=== PATIENT | female | born 1945 | race Caucasian/White ===

== ENCOUNTER 2019-03-23 14:50 | Outpatient (CLI) | payer MEDICARE, MEDICAID, SELFPAY ==
--- NOTE | 2019-03-23 15:00 | XR_ITS ---
WS: [id number] LATERAL LUMBAR SPINE: 3 view. Lateral radiographs are performed in upright neutral, flexion and extension to the patient's toleranc e. 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 Disc spaces and vertebral body heights are normal. With flexion and extensio n there is no instability. Mild osteopenia. Mild atherosclerosis aorta. XR/XR lumbar spine f/e only [id number] IMPRESSION: No lumbar spine instability.
--- NOTE | 2019-03-23 15:00 | CT_ITS ---
WS: [id number] CT LUMBAR SPINE, noncontrast. 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 Sagittal and coronal reformats are submitte d and reviewed. All CT scans at [facility] use at least one of these dose optimization te chniques: automated exposure control; mA and/or kV adjustment per patient size (includes targeted exa ms where dose is matched to clinical indication); or iterative reconstruction. IV contrast: None DLP: 2000.4 mGycm COMPARISON: MRI 11/26/2018 Normal lumbar alignment with no loss of disc space height or vertebral body height. L1-2: Normal. L2-3: Normal. L3-4: Very mild annular disc bulging. No stenosis or herniation. L4-5: Mild annular disc bulging with slight flattening upon the ventral thecal sac. No significant st enosis. L5-S1: Mild central disc protrusion is broad-based. No significant stenosis. Mild atherosclerosis throughout the abdominal aorta. No aneurysm. Large rounded complex mass from the upper pole of the LEFT kidney needs to be further evaluated. Mass measures 6.3 x 6.2 x 5.5 cm. The adjacent visualized LEFT kidney is markedly atrophic. The RIGHT kid ankur is normal size. Mild narrowing of the SI joints. CT/CT lumbar spine wo con* [id number] IMPRESSION: 1. No significant central or foraminal stenosis. The disc heights and vertebra l bodies and foramen are well-preserved for the patient's chronological age. 2. Large complex soft tissue mass associated with the upper pole of the LEFT k idney measures 6.3 x 6.2 x 5.5 cm. Could be a hemorrhagic cyst or complex cyst. Neoplasm with hemorrhage should be considered also. Neoplasm needs to be exclu ded. The LEFT kidney, although incompletely visualized, is markedly atrophic. R ecommend additional imaging to evaluate the LEFT kidney. The most helpful study would be CT with and without IV contrast. 3. Mild atherosclerosis aorta with no aneurysm.
== END 2019-03-23 14:51 | disposition home or self-care (01) ==
PROVIDERS: Family Provider Family Medicine; PCP Family Medicine; Referring Provider Family Medicine; Visit Provider Licensed Practical Nurse
DX: M51.17 Intervertebral disc disorders with radiculopathy, lumbosacral region (principal); N28.89 Other specified disorders of kidney and ureter; I70.0 Atherosclerosis of aorta
CPT/HCPCS: 72120; 72131

== ENCOUNTER → 2019-04-02 13:16 | Outpatient (BNVA) | payer MEDICARE, MEDICAID, SELFPAY | PROVIDERS: Family Provider Family Medicine; PCP Family Medicine; Referring Provider Licensed Practical Nurse; Visit Provider Psychiatry & Neurology Neurology | DX: G62.9 Polyneuropathy, unspecified (principal); F17.210 Nicotine dependence, cigarettes, uncomplicated | CPT/HCPCS: 95886; 95909 ==

== ENCOUNTER → 2019-04-07 12:58 | Outpatient (BNVA) | payer MEDICARE, MEDICAID, SELFPAY | PROVIDERS: Family Provider Family Medicine; PCP Family Medicine; Visit Provider Nurse Practitioner Psychiatric/Mental Health | DX: F33.1 Major depressive disorder, recurrent, moderate (principal); F41.9 Anxiety disorder, unspecified; G47.21 Circadian rhythm sleep disorder, delayed sleep phase type; F17.210 Nicotine dependence, cigarettes, uncomplicated | CPT/HCPCS: 99214 ==

== ENCOUNTER 2019-04-13 08:10 | Outpatient (CLI) | payer MEDICARE, MEDICAID, SELFPAY ==
[2019-04-13] MEDS: iohexol 300 mg/mL 50 mL Btl PO (09:27)
--- NOTE | 2019-04-13 09:30 | CT_ITS ---
WS: [id number] CT ABDOMEN AND PELVIS WITH AND WITHOUT CONTRAST HISTORY: left kidney mass TECHNIQUE: Unenhanced 5 mm axial imaging first performed through the abdomen. Post contrast imaging t hrough the abdomen and pelvis. Oral contrast has been provided. Sagittal and coronal reformats are s ubmitted. All CT scans at [facility] use at least one of these dose optimization techniqu es: automated exposure control; mA and/or kV adjustment per patient size (includes targeted exams whe re dose is matched to clinical indication); or iterative reconstruction. CONTRAST: Omnipaque 300; 95 mL IV. DLP: 2485.59 mGycm COMPARISON: Lumbar spine CT 03/23/2019. Lung bases are clear. Increased fat consistent with lipomatous changes along the intra-atrial septum. There is also increased pericardial fat. Small hiatal hernia. There is a large round soft tissue mass extending exophytic from the upper pole of the LEFT kidney me asuring 6.6 x 5.8 x 5.9 cm. Well-rounded mass of variable density on the noncontrast examination. Sterling nsfield units are elevated. The entire mass does not significantly enhance on the postcontrast studi es. On the postcontrast study there is enhancement greater than 30 Hounsfield units involving the mos t inferior aspect of the mass. The remaining LEFT kidney demonstrates marked atrophy and diffuse reynaldo ical thinning although there is still some enhancement and excretion from the kidney. RIGHT kidney: Normal size RIGHT kidney with no mass or obstruction. No calcifications. Liver, gallbladder, adrenal glands, pancreas and spleen are negative for any acute process. No adenop athy or free fluid. Mild atherosclerosis aorta with no aneurysm. Only single renal arteries are ident ified from the aorta. Visualized GI tract is negative for acute process. No significant diverticular disease. The appendix is been removed. Status post hysterectomy. Anterior abdominal wall is intact. No osteoblastic or osteolytic bone disease. CT/CT abdomen pelvis wo/w [id number] IMPRESSION: 1. Large solid mass from the upper pole of the LEFT kidney measures 6.6 x 5.8 x 5.9 cm. There is very minimal enhancement and only a small portion of the mas s. Due to the large size and no adjacent adenopathy this may be a low-grade ne oplasm or benign mass. Recommend consultation with urology. 2. Severe atrophy of the LEFT kidney although there is still excretion. 3. No adenopathy. 4. Normal RIGHT kidney.
[2019-04-13 09:55] LABS: Blood Urea Nitrogen 14 mg/dL (8-23)
[2019-04-13] MEDS: iohexol 300 mg/mL 100 mL Btl IV (10:09)
== END 2019-04-13 08:11 | disposition home or self-care (01) ==
PROVIDERS: Radiology Diagnostic Radiology; Family Provider Family Medicine; PCP Family Medicine; Visit Provider Licensed Practical Nurse
DX: N28.89 Other specified disorders of kidney and ureter (principal); N26.1 Atrophy of kidney (terminal)
CPT/HCPCS: 74178; 82565; 84520; Q9967

== ENCOUNTER → 2019-04-14 15:57 | Outpatient (BNVA) | payer MEDICARE, MEDICAID, SELFPAY | PROVIDERS: Family Provider Family Medicine; PCP Family Medicine; Visit Provider Family Medicine | DX: E78.2 Mixed hyperlipidemia (principal); N28.89 Other specified disorders of kidney and ureter | CPT/HCPCS: 36415; 80053 ==

== ENCOUNTER → 2019-05-17 09:31 | Outpatient (BNVA) | payer MEDICARE, MEDICAID, SELFPAY | PROVIDERS: Family Provider Family Medicine; PCP Family Medicine; Visit Provider Specialist | DX: R56.9 Unspecified convulsions (principal); G25.81 Restless legs syndrome; F17.210 Nicotine dependence, cigarettes, uncomplicated | CPT/HCPCS: 99213 ==

== ENCOUNTER 2019-05-24 09:37 | Outpatient (CLI) | payer MEDICARE, MEDICAID, SELFPAY ==
--- NOTE | 2019-05-24 09:47 | MM_ITS ---
WS: [id number] BILATERAL DIGITAL SCREENING MAMMOGRAPHY WITH CAD CLINICAL INFORMATION: SCREENING HISTORY: Screening mammogram. No current complaints. COMPARISON: March 04, 2018 TECHNIQUE: Bilateral CC and MLO views. FINDINGS: Scattered fibroglandular densities bilaterally. No suspicious focal mass, asymmetry, calcifications, or architectural distortion. No evidence of malignancy. MM/[place] [id number] IMPRESSION: BI-RADS: 1-Negative FOLLOW UP: 1 Year Follow-up Recommend return to annual screening mammography.
== END 2019-05-24 09:38 | disposition home or self-care (01) ==
PROVIDERS: Family Provider Family Medicine; PCP Family Medicine; Visit Provider Family Medicine
DX: Z12.31 Encounter for screening mammogram for malignant neoplasm of breast (principal)
CPT/HCPCS: 77067

== ENCOUNTER → 2019-06-28 08:10 | Outpatient (BNVA) | payer MEDICARE, MEDICAID, SELFPAY | PROVIDERS: Family Provider Family Medicine; PCP Family Medicine; Visit Provider Nurse Practitioner Psychiatric/Mental Health | DX: F33.1 Major depressive disorder, recurrent, moderate (principal); F41.9 Anxiety disorder, unspecified; G47.21 Circadian rhythm sleep disorder, delayed sleep phase type | CPT/HCPCS: 99214 ==

== ENCOUNTER 2019-07-03 20:00 | Observation (INO) | payer MEDICARE, MEDICAID, SELFPAY ==
[2019-07-03] VITALS (18 sets, daily range): BP systolic 116–149; BP diastolic 74–89; PULSE 70–77; RESP 13–27; TEMP 36.6; O2SAT 92–100; BMI 33.5
--- NOTE | 2019-07-03 20:07 | ED_ITS ---
HPI - Fall General: Chief Complaint: Altered Mental Status Stated Complaint: FALL/ HIT HEAD Time Seen by Provider: 07/03/19 20:07 History of Present Illness: HPI Narrative: Pt was standing in [place] and her arms started shaking and she felt lightheaded and she fell and hit her head, was unconscious for at least 20 min, when ems got to her she could sy her head hurt and she was in and out of consciousness, pt states she has had head bleed in the past from innjury. Answers most questions but is hard to arouse. Moves all 4 etmariann CARBAJAL complaint: fall Onset (ago): minute(s) Fall from: standing Fall witnessed: yes, by family Place fall occurred: home Loss of consciousness: None Length of LOC: minutes(s) Prolonged down time: yes and minute(s) Symptoms prior to fall: lightheadedness and dizziness Associated symptoms-after fall: Reports headache(s); Denies abdominal pain or chest pain Review of Systems General: Reports: 10 or more systems reviewed and unremarkable except in HPI and below Const: Denies: fever or chills ENMT: Denies: throat pain Card: Denies: chest pain or swelling of feet/ankles Resp: Denies: shortness of breath or productive cough GI: Denies: abdominal pain, nausea, vomiting, diarrhea, constipation or blood in stool : Denies: difficulty urinating Musc: Denies: back pain or extremity swelling Skin/Breast: Denies: rash Neuro: Reports: headache, lack of coordination, frequent falls, slurred speech and other (lethargic); Denies: numbness in extremities or weakness in extremities PFSH ED PFSH: Social History Smoking and tobacco status: current every day smoker cigarettes [ Other cigarette details: 6 daily ] Alcohol intake: never Lives independently: Yes Household members: spouse Housing: House Marital status: service: No Current occupational status: retired and disabled History of recent travel: No Female Reproductive History: Para: 4 Spontaneous abortions: Yes Physical Exam Const: COMMON NORMALS: oriented x3; negative for alert (somnolent, difficult to arouse, follows most commands) EXAM LIMITATIONS: altered mental status GENERAL APPEARANCE: well developed and lethargic ORIENTATION/CONSCIOUSNESS: Yes oriented to person, Yes oriented to place, Yes oriented to time and Yes lethargic HENMT: COMMON NORMALS: normocephalic HEAD & SCALP: normal to inspection and normocephalic MOUTH: oral and palatal mucosa normal and lip normal THROAT: posterior oropharynx normal and tonsils normal Neck/C-Spine: COMMON NORMALS: no meningeal signs GENERAL: Yes normal visual inspection and Yes trachea midline CERVICAL SPINE: Yes collar present Chest: COMMONS NORMALS: inspection of chest normal Resp: COMMON NORMALS: normal respiratory effort and clear to auscultation bilaterally EFFORT & INSPECTION: Yes able to speak in complete sentences and No respiratory distress AUSCULTATION: clear to auscultation bilaterally, no rales, no rhonchi and no wheezes Cardio: COMMON NORMALS: regular rate, regular rhythm, S1 normal heart sound, S2 normal heart sound and no murmurs RATE: regular rate RHYTHM: regular rhythm HEART SOUNDS: S1 normal and S2 normal PERIPHERAL PULSES: radial pulses present and dorsalis pedis pulses present GI: COMMON NORMALS: normal to inspection, nondistended, normoactive bowel sounds, soft to palpation and non-tender INSPECTION: Yes normal to inspection AUSCULTATION: Yes normoactive bowel sounds PALPATION: Yes soft, No tender, No guarding and No rigid RECTAL EXAM: deferred : COMMON NORMALS: Yes no CVA tenderness BLADDER/KIDNEY EXAM: Yes no CVA tenderness Back/Pelvis: COMMON NORMALS: no CVA tenderness Extremity: COMMON NORMALS: normal to inspection, full ROM, normal capillary refill, no calf tenderness and no pedal edema Neuro: COMMON NORMALS: oriented x3 SENSORIUM/ORIENTATION: No alert (somnolent, difficult to arouse, follows most commands), Yes oriented to person, Yes oriented to place, Yes oriented to time and Yes lethargic MENINGEAL SIGNS: Yes no meningeal signs Skin: COMMON NORMALS: no rashes or lesions noted GENERAL SKIN EXAM: no rashes or lesions noted Course Vital Signs: Vital signs: Vital Signs Temperature 97.9 F 07/03/19 20:00 Pulse Rate 70 07/03/19 20:49 Respiratory Rate 27 H 07/03/19 20:49 Blood Pressure 134/84 07/03/19 20:49 Pulse Oximetry 99 07/03/19 20:49 MDM - Fall MDM Narrative: Medical decision making narrative: Pt has fallen and is confused, She has mild basilar infilatrates on cxr so I have staretd her on levaquin, she had shaking of her arms before she beame unresponsive and she is on seizure meds so she may have had a seizure and was postictal. Seh is not hypoxic, Ct head and neck are unremarkable. Dr Crump states she will put pt in obs for likely prolonged post ictal state and pneumonia, requests we order a covid 19 test Lab Data: Attestation: I reviewed the patient's lab results. Labs: Lab Results 07/03/19 07/03/19 07/03/19 Range/Units 20:25 20:31 20:31 WBC 10.8 H (4.0-10.0) 10^3/ uL RBC 3.64 L (4.1-5.3) 10^6/u L Hgb 12.5 (11.5-15.3) g/dL Hct 36.7 L (37.0-47.0) % MCV 100.8 H (81-99) fL MCH 34.3 H (28.0-34.0) pg MCHC 34.1 (30.0-36.0) g/dL RDW 13.9 (12.1-15.1) % Plt Count 416 H (130-400) 10^3/c mm MPV 8.6 (7.4-10.4) fL Neut % (Auto) 57.9 % Lymph % (Auto) 27.5 % Angelina % (Auto) 9.9 % Eos % (Auto) 3.4 % Baso % (Auto) 0.7 % Neut # (Auto) 6.2 (1.8-7.7) 10^3/u L Lymph # (Auto) 3.0 (0.8-4.8) 10^3/u L Angelina # (Auto) 1.1 H (0.2-0.9) 10^3/u L Eos # (Auto) 0.4 (0.0-0.8) 10^3/u L Baso # (Auto) 0.1 (0.0-0.1) 10^3/u L Nucleated RBC % (a uto) 0 % Nucleated RBCs # 0.0 /100WBC Specimen Type Arterial Sample Site Radial, right ABG pH 7.40 (7.35-7.45) ABG pCO2 47.9 H (35-45) mmHg ABG pO2 86.7 (80.0-100.0) mmH g ABG HCO3 29.3 H (22-26) mmol/L ABG O2 Saturation 97.4 ABG Base Excess 3.7 H (-2.0-2.0) mmol/ L Manuel Test Pos A-a O2 Gradient 3.6 L (5-10) mmHg Hematocrit 38.1 (37-47) % Hgb O2 Saturation 95.3 (95-100) % Carboxyhemoglobin 1.4 (0.4-20.1) %THgb Methemoglobin 0.8 (0.4-1.5) % Total Hemoglobin 12.4 (12-16) g/dL Sodium 139.0 138 (131-143) mmol/L Potassium 3.3 L 3.4 L (3.5-5.0) mmol/L Glucose 108.0 119 H (70-115) mg/dL Ionized Calcium 1.2 (1.1-1.4) mmol/L O2 Delivery Device Nc O2 Liters/Min 2.0 % Assembly Room Supervisor ID ellpe Chloride 96 L (98-107) mmol/L Carbon Dioxide 27 (22-29) mmol/L Anion Gap 18.4 (5-19) BUN 12 (8-23) mg/dL Creatinine 1.1 H (0.5-0.9) mg/dL Calculated Osmolal ity 283 L (285-295) mOsm/k g Lactate (0.5-2.2) mmol/L Calcium 9.4 (8.5-10.5) mg/dL Total Bilirubin 0.3 (0.15-1.2) mg/dL AST 26 (0-32) U/L ALT < 5 (0-33) U/L Alkaline Phosphata se 122 H (35-105) IU/L Troponin T Baselin e (0-10) ng/mL Troponin T 120 Min teller (0-10) ng/mL Delta Troponin T (0-10) ABS# Total Protein 6.5 L (6.6-8.7) g/dL Albumin 3.9 (3.5-5.2) g/dL Globulin 2.6 (1.3-4.6) g/dL Urine Color (Yellow) Urine Appearance (CLEAR) Urine pH (5-7) Ur Specific Gravit y (1.005-1.030) Urine Protein (Negative) Urine Glucose (UA) (Normal) Urine Ketones (Negative) Urine Blood (Negative) Urine Nitrate (Negative) Urine Bilirubin (NEGATIVE) Urine Urobilinogen (Negative) mg/dL Ur Leukocyte Bev ase (Negative) Urine RBC (0-2) /hpf Urine WBC (0-5) /hpf Ur Squamous Epith Cells (0-5) Amorphous Sediment Urine Bacteria (NONE) Hyaline Casts Urine Mucus Phenytoin 0.8 L (10-20) ug/mL Influenza Type A A g (Negative) Influenza Type B A g (Negative) 07/03/19 07/03/19 07/03/19 Range/Units 20:31 20:31 21:20 WBC (4.0-10.0) 10^3/ uL RBC (4.1-5.3) 10^6/u L Hgb (11.5-15.3) g/dL Hct (37.0-47.0) % MCV (81-99) fL MCH (28.0-34.0) pg MCHC (30.0-36.0) g/dL RDW (12.1-15.1) % Plt Count (130-400) 10^3/c mm MPV (7.4-10.4) fL Neut % (Auto) % Lymph % (Auto) % Angelina % (Auto) % Eos % (Auto) % Baso % (Auto) % Neut # (Auto) (1.8-7.7) 10^3/u L Lymph # (Auto) (0.8-4.8) 10^3/u L Angelina # (Auto) (0.2-0.9) 10^3/u L Eos # (Auto) (0.0-0.8) 10^3/u L Baso # (Auto) (0.0-0.1) 10^3/u L Nucleated RBC % (a uto) % Nucleated RBCs # /100WBC Specimen Type Sample Site ABG pH (7.35-7.45) ABG pCO2 (35-45) mmHg ABG pO2 (80.0-100.0) mmH g ABG HCO3 (22-26) mmol/L ABG O2 Saturation ABG Base Excess (-2.0-2.0) mmol/ L Manuel Test A-a O2 Gradient (5-10) mmHg Hematocrit (37-47) % Hgb O2 Saturation (95-100) % Carboxyhemoglobin (0.4-20.1) %THgb Methemoglobin (0.4-1.5) % Total Hemoglobin (12-16) g/dL Sodium (131-143) mmol/L Potassium (3.5-5.0) mmol/L Glucose (70-115) mg/dL Ionized Calcium (1.1-1.4) mmol/L O2 Delivery Device O2 Liters/Min % Assembly Room Supervisor ID Chloride (98-107) mmol/L Carbon Dioxide (22-29) mmol/L Anion Gap (5-19) BUN (8-23) mg/dL Creatinine (0.5-0.9) mg/dL Calculated Osmolal ity (285-295) mOsm/k g Lactate 2.7 H (0.5-2.2) mmol/L Calcium (8.5-10.5) mg/dL Total Bilirubin (0.15-1.2) mg/dL AST (0-32) U/L ALT (0-33) U/L Alkaline Phosphata se (35-105) IU/L Troponin T Baselin e 13 H (0-10) ng/mL Troponin T 120 Min teller (0-10) ng/mL Delta Troponin T (0-10) ABS# Total Protein (6.6-8.7) g/dL Albumin (3.5-5.2) g/dL Globulin (1.3-4.6) g/dL Urine Color Yellow (Yellow) Urine Appearance Clear (CLEAR) Urine pH 5 (5-7) Ur Specific Gravit y 1.020 (1.005-1.030) Urine Protein Trace (Negative) Urine Glucose (UA) Norm (Normal) Urine Ketones Negative (Negative) Urine Blood Neg (Negative) Urine Nitrate Negative (Negative) Urine Bilirubin 1+ H (NEGATIVE) Urine Urobilinogen Norm (Negative) mg/dL Ur Leukocyte Bev ase Negative (Negative) Urine RBC 0-4 H (0-2) /hpf Urine WBC 0-4 H (0-5) /hpf Ur Squamous Epith Cells 0-4 H (0-5) Amorphous Sediment Trace Urine Bacteria Trace (NONE) Hyaline Casts 15-25 H Urine Mucus Trace Phenytoin (10-20) ug/mL Influenza Type A A g (Negative) Influenza Type B A g (Negative) 07/03/19 07/03/19 Range/Units 21:20 22:30 WBC (4.0-10.0) 10^3/ uL RBC (4.1-5.3) 10^6/u L Hgb (11.5-15.3) g/dL Hct (37.0-47.0) % MCV (81-99) fL MCH (28.0-34.0) pg MCHC (30.0-36.0) g/dL RDW (12.1-15.1) % Plt Count (130-400) 10^3/c mm MPV (7.4-10.4) fL Neut % (Auto) % Lymph % (Auto) % Angelina % (Auto) % Eos % (Auto) % Baso % (Auto) % Neut # (Auto) (1.8-7.7) 10^3/u L Lymph # (Auto) (0.8-4.8) 10^3/u L Angelina # (Auto) (0.2-0.9) 10^3/u L Eos # (Auto) (0.0-0.8) 10^3/u L Baso # (Auto) (0.0-0.1) 10^3/u L Nucleated RBC % (a uto) % Nucleated RBCs # /100WBC Specimen Type Sample Site ABG pH (7.35-7.45) ABG pCO2 (35-45) mmHg ABG pO2 (80.0-100.0) mmH g ABG HCO3 (22-26) mmol/L ABG O2 Saturation ABG Base Excess (-2.0-2.0) mmol/ L Manuel Test A-a O2 Gradient (5-10) mmHg Hematocrit (37-47) % Hgb O2 Saturation (95-100) % Carboxyhemoglobin (0.4-20.1) %THgb Methemoglobin (0.4-1.5) % Total Hemoglobin (12-16) g/dL Sodium (131-143) mmol/L Potassium (3.5-5.0) mmol/L Glucose (70-115) mg/dL Ionized Calcium (1.1-1.4) mmol/L O2 Delivery Device O2 Liters/Min % Assembly Room Supervisor ID Chloride (98-107) mmol/L Carbon Dioxide (22-29) mmol/L Anion Gap (5-19) BUN (8-23) mg/dL Creatinine (0.5-0.9) mg/dL Calculated Osmolal ity (285-295) mOsm/k g Lactate (0.5-2.2) mmol/L Calcium (8.5-10.5) mg/dL Total Bilirubin (0.15-1.2) mg/dL AST (0-32) U/L ALT (0-33) U/L Alkaline Phosphata se (35-105) IU/L Troponin T Baselin e (0-10) ng/mL Troponin T 120 Min teller 14.94 H (0-10) ng/mL Delta Troponin T 1.94 (0-10) ABS# Total Protein (6.6-8.7) g/dL Albumin (3.5-5.2) g/dL Globulin (1.3-4.6) g/dL Urine Color (Yellow) Urine Appearance (CLEAR) Urine pH (5-7) Ur Specific Gravit y (1.005-1.030) Urine Protein (Negative) Urine Glucose (UA) (Normal) Urine Ketones (Negative) Urine Blood (Negative) Urine Nitrate (Negative) Urine Bilirubin (NEGATIVE) Urine Urobilinogen (Negative) mg/dL Ur Leukocyte Bev ase (Negative) Urine RBC (0-2) /hpf Urine WBC (0-5) /hpf Ur Squamous Epith Cells (0-5) Amorphous Sediment Urine Bacteria (NONE) Hyaline Casts Urine Mucus Phenytoin (10-20) ug/mL Influenza Type A A g Negative (Negative) Influenza Type B A g Negative (Negative) Imaging Data^: CT Head: Radiologist's impression: [address] [place] [address] CT Scan Report Signed Patient: Roxana Carrington #: [id number] : 8Acct#:[id number] Age/Sex: 74 / FADM Date: 07/03/19 Loc: ERRoom/Bed: Attending Dr: Ordering Provider/Ordering MD: Kim Weiss DO Date of Service: 07/03/19 Procedure(s): CT head wo con* [id number] Accession Number(s): [id number] Report Number: [id number] PROCEDURE INFORMATION: Exam: CT Head Without Contrast Exam date and time: 07/03/2019 8:11 PM Age: 74 years old Clinical indication: Syncope and collapse; Patient HX: Syncope episode hitting head was unresponsive; Additional info: Trauma TECHNIQUE: Imaging protocol: Computed tomography of the head without contrast. Radiation optimization: All CT scans at this facility use at least one of these dose optimization techniques: automated exposure control; mA and/or kV adjustment per patient size (includes targeted exams where dose is matched to clinical indication); or iterative reconstruction. COMPARISON: CT head wo con* [id number] 12/29/2018 2:00 PM FINDINGS: The ventricles, sulci and basilar cisterns are normal for the patient's stated age. There are mild areas of decreased attenuation in the periventricular white matter which is nonspecific but likely relates to small vessel ischemic change. There is no evidence for acute infarct. There is no evidence for mass. There is no hemorrhage. There are no extra-axial fluid collections. There is no midline shift. The skull is intact. The visualized paranasal sinuses are well aerated. There is atherosclerotic change of the cavernous carotid arteries. CT/CT head wo con* [id number] IMPRESSION: No evidence for acute intracranial injury. Radiation Dose CTDIVOL = (mGy): DLP = 741.35 (mGy-cm) Dictated By:Navarro Steele MD Signed By:Navarro Steele MDSigned Date/Time:07/03/192029 DD/ [address]: Radiologist's impression: CT Scan Report Signed Patient: Roxana Carrington #: [id number] : 8Acct#:[id number] Age/Sex: 74 / FADM Date: 07/03/19 Loc: ERRoom/Bed: Attending Dr: Ordering Provider/Ordering MD: Kim Weiss DO Date of Service: 07/03/19 Procedure(s): CT cervical spin wo con* [id number] Accession Number(s): [id number] Report Number: [id number] PROCEDURE INFORMATION: Exam: CT Cervical Spine Without Contrast Exam date and time: 07/03/2019 8:11 PM Age: 74 years old Clinical indication: Injury or trauma; Fall; Initial encounter; Blunt trauma; Patient HX: Syncope episode hitting head was unresponsive TECHNIQUE: Imaging protocol: Computed tomography images of the cervical spine without contrast. Radiation optimization: All CT scans at this facility use at least one of these dose optimization techniques: automated exposure control; mA and/or kV adjustment per patient size (includes targeted exams where dose is matched to clinical indication); or iterative reconstruction. COMPARISON: CT Cervical Spine wo* [id number] 12/29/2018 2:03 PM FINDINGS: There is some straightening of the normal cervical lordosis. This may be due to muscle spasm or patient positioning. There is no evidence of fracture or subluxation. The vertebral bodies are of normal height. There is disc space narrowing at C5-C6 with endplate spurring. The remaining disc spaces are well maintained The prevertebral soft tissues and the predental space are unremarkable. There are mild degenerative changes of the C1-C2 articulation. There are degenerative changes of the facet joints and uncovertebral joints. There is no significant central stenosis. There is no evidence for epidural hematoma. The lung apices are clear. There is a 3 cm cystic mass in the right lobe of the thyroid gland. There is a 17 mm cystic mass within the left lobe of gland. Correlation with thyroid ultrasound and clinical exam on a nonemergent basis could be performed. CT/CT cervical spin wo con* [id number] IMPRESSION: There is some straightening of the normal cervical lordosis. This may be due to muscle spasm or patient positioning. There is no evidence of fracture or subluxation. Radiation Dose CTDIVOL = (mGy): DLP = 490.45 (mGy-cm) Dictated By:Navarro Steele MD Signed By:Navarro Steeleigned Date/Time:07/03/192031 EKG Data^: EKG 1: Attestation: I personally reviewed and interpreted this EKG as follows: EKG interpretation time: 20:36 Interpretation: nsr rate 70, normal st segments Discharge Plan Discharge Patient Disposition: Placed in Observation Clinical Impression: Altered mental status, Post-ictal state, Epilepsy, Concussion, Pneumonia Condition: Stable Prescriptions: No Action bupropion HCl 200 mg tablet sustained-release 12 hr 200 mg PO BID Qty: 180 RF: 2 aripiprazole 5 mg tablet 5 mg PO .QHS Qty: 90 RF: 2 mirtazapine [Remeron] 15 mg tablet 15 mg PO .QHS Qty: 90 RF: 2 Chantix 1 mg tablet 1 mg PO BID Qty: 56 RF: 2 lorazepam 1 mg tablet 1 mg PO .COMPLEX Qty: 90 RF: 3 diphenhydramine HCl [Benadryl Allergy] 25 mg tablet 100 mg PO .QHS PRNRF: 0 phenytoin sodium extended 100 mg capsule 100 mg PO DAILY Qty: 30 RF: 0 hydrocodone-acetaminophen 5-325 mg tablet 1 tab PO ONCE PRNRF: 0 Trelegy Ellipta 100-62.5-25 mcg blister with device 1 inh INHALATION QDAY RF: 0 furosemide 40 mg tablet 40 mg PO QAM RF: 0 potassium chloride 10 mEq capsule, extended release 10 meq PO QDAY RF: 0 ipratropium-albuterol 0.5 mg-3 mg(2.5 mg base)/3 mL solution for nebulization 3 ml INHALATION Q4H PRNRF: 0 montelukast [Singulair] 10 mg tablet 10 mg PO QDAY RF: 0 atorvastatin [Lipitor] 20 mg tablet 20 mg PO QDAY Qty: 90 RF: 0 nitroglycerin [Nitrostat] 0.4 mg tablet, sublingual 0.4 mg SUBLINGUAL Q5M PRN (Reason: chest pain) 30 Days Qty: 25 RF: 6 allopurinol 100 mg tablet 100 mg PO QDAY Qty: 90 RF: 0 naproxen 500 mg tablet 500 mg PO BID Qty: 180 RF: 0 albuterol sulfate [Ventolin HFA] 90 mcg/actuation HFA aerosol inhaler 2 puff INHALATION Q4H PRN (Reason: shortness of breath or wheezing) Qty: 18 RF: 2 meclizine 25 mg tablet 50 mg PO BID Qty: 360 RF: 0 omeprazole 40 mg capsule,delayed release(DR/EC) 40 mg PO BID Qty: 60 RF: 1 All Day Allergy (cetirizine) 10 mg capsule 10 mg PO DAILY Qty: 30 RF: 0 pramipexole 1 mg tablet 1 mg PO QDAY Qty: 30 RF: 5 lamotrigine 150 mg tablet 150 mg PO BID Qty: 180 RF: 3 Referrals: Brissa Katz DO [Primary Care Provider] - Louisa Jaramillo DO [Family Provider] - Coding Level of Care Code ED First Aid Director for Chg Fwd Exam Comprehensive
--- NOTE | 2019-07-03 20:10 | ECG_ITS ---
Measurements Intervals [place] Rate: 83 P: 68 NV: 161 QRS: 55 QRSD: 97 T: 66 QT: 401 QTc: 471 SINUS RHYTHM INCOMPLETE RIGHT BUNDLE BRANCH BLOCK [90+ ms QRS DURATION, TERMINAL R IN V1/V2, 40+ ms S IN I/aVL/V4/V5/V6] Compared to ECG 02/16/2017 02:40:57 Incomplete right bundle-branch block now present Electronically Signed On 07-04-2019 20:21:44 CDT by Gauri Gardiner M.D. [id number]
--- NOTE | 2019-07-03 20:10 | XRR_ITS ---
PROCEDURE INFORMATION: Exam: XR Chest, 1 View Exam date and time: 07/03/2019 8:29 PM Age: 74 years old Clinical indication: Injury or trauma; Fall; Initial encounter; Concussion /head injury; Additional info: Pneumonia TECHNIQUE: Imaging protocol: XR of the chest Views: 1 view. COMPARISON: CR Chest 1 [place] [id number] 02/16/2017 3:34 AM FINDINGS: There is cardiomegaly which is stable. There are mild infiltrates within the lung bases. There is no pleural effusion or pneumothorax. Pulmonary vascularity is normal. No rib fractures are seen. XR/XR chest 1V portable [id number] IMPRESSION: 1. Cardiomegaly, stable. 2. Mild basilar infiltrates.
[2019-07-03 20:38] LABS: ABG PCO2 47.9 mmHg (35-45); Alveolar-Arterial Oxygen Gradi 3.6 mmHg (5-10); Arterial Blood Gas Hematocrit 38.1 % (37-47); Base Excess ABG 3.7 mmol/L (-2.0-2.0); Blood Gas Allen Test Pos; Blood Gas Sample Site Radial, right; Blood Gas Sample Type Arterial; Carboxyhemoglobin 1.4 %THgb (0.4-20.1); HCO3 ABG 29.3 mmol/L (22-26); HGB O2 Sat 95.3 % (95-100); Ionized Calcium Level - ABG 1.2 mmol/L (1.1-1.4); Methemoglobin 0.8 % (0.4-1.5); Oxygen Device NC; Oxygen Saturation ABG 97.4; PO2 ABG 86.7 mmHg (80.0-100.0); Potassium Level - ABG 3.3 mmol/L (3.5-5.0); Total Hemoglobin 12.4 g/dL (12-16)
--- NOTE | 2019-07-03 20:41 | PC.NURSE ---
Pt. lethargic. Arouses to voice. Oriented x 3.
[2019-07-03 20:46] LABS: Basophils # 0.1 10^3/uL (0.0-0.1); Basophils % 0.7 %; Eosinophils # 0.4 10^3/uL (0.0-0.8); Eosinophils % 3.4 %; Hematocrit 36.7 % (37.0-47.0); Hemoglobin 12.5 g/dL (11.5-15.3); Lymphocytes % 27.5 %; Mean Corpuscular HGB Conc 34.1 g/dL (30.0-36.0); Mean Corpuscular Hemoglobin 34.3 pg (28.0-34.0); Mean Corpuscular Volume 100.8 fL (81-99); Mean Platelet Volume 8.6 fL (7.4-10.4); Monocytes # 1.1 10^3/uL (0.2-0.9); Monocytes % 9.9 %; Neutrophils # 6.2 10^3/uL (1.8-7.7); Neutrophils % 57.9 %; Nucleated Red Blood Cells % 0 %; Platelet Count 416 10^3/cmm (130-400); Red Blood Count 3.64 10^6/uL (4.1-5.3); Red Cell Distribution Width 13.9 % (12.1-15.1); White Blood Count 10.8 10^3/uL (4.0-10.0)
[2019-07-03 21:01] LABS: Alanine Aminotransferase < 5 U/L (0-33); Albumin Level 3.9 g/dL (3.5-5.2); Alkaline Phosphatase 122 IU/L (35-105); Anion Gap 18.4 (5-19); Aspartate Amino Transferase 26 U/L (0-32); Blood Urea Nitrogen 12 mg/dL (8-23); Calcium 9.4 mg/dL (8.5-10.5); Carbon Dioxide 27 mmol/L (22-29); Chloride 96 mmol/L (98-107); Globulin 2.6 g/dL (1.3-4.6); Glucose 119 mg/dL (65-115); Osmolality Calculated 283 mOsm/kg (285-295); Phenytoin Dilantin 0.8 ug/mL (10-20); Potassium 3.4 mmol/L (3.5-5.1); Sodium 138 mmol/L (136-145); Total Bilirubin 0.3 mg/dL (0.15-1.2); Total Protein 6.5 g/dL (6.6-8.7)
[2019-07-03 21:02] LABS: Lactate (Lactic Acid level) 2.7 mmol/L (0.5-2.2)
[2019-07-03 21:03] LABS: Troponin(5th) Baseline 13 ng/mL (0-10)
--- NOTE | 2019-07-03 22:10 | ECG_ITS ---
Measurements Intervals [place] Rate: 70 P: 63 MI: 177 QRS: 42 QRSD: 86 T: 71 QT: 421 QTc: 456 SINUS RHYTHM LOW QRS VOLTAGE IN PRECORDIAL LEADS [QRS DEFLECTION < 1.0 mV IN CHEST LEADS] POSSIBLE RIGHT VENTRICULAR CONDUCTION DELAY [RSR (QR) IN V1/V2] Compared to ECG 02/16/2017 02:40:57 Low QRS voltage now present Electronically Signed On 07-04-2019 20:25:42 CDT by Gauri Gardiner M.D. [id number]
[2019-07-03 22:27] LABS: Influenza A by IFA Negative (Negative); Influenza B by IFA Negative (Negative)
[2019-07-03 22:28] LABS: Add Urine Microscopic? YES; Bilirubin Urine 1+ (NEGATIVE); Blood Urine Neg (Negative); Glucose Urine UA Norm (Normal); Ketones Urine Negative (Negative); Leukocyte Esterase Urine Negative (Negative); Nitrate Urine Negative (Negative); Protein Urine Trace (Negative); Urine Appearance Clear (CLEAR); Urine Color Yellow (Yellow); Urobilinogen Urine Norm (Negative); pH Urine 5 (5-7)
[2019-07-03 22:29] LABS: Bacteria Urine TRACE; Mucus Urine TRACE; RBC Urine 0-4 /hpf (0-2); Squamous Epithelial Cell Urine 0-4 (0-5); WBC Urine 0-4 /hpf (0-5)
[2019-07-03 22:30] LABS: Add Urine Culture? No; Amorphous Sediment Urine TRACE; Hyaline Casts Urine 15-25
[2019-07-03 22:57] LABS: Troponin 5 2HR 14.94 ng/mL (0-10); Troponin 5 2HR Delta 1.94 ABS# (0-10)
[2019-07-03] MEDS: cefTRIAXone 1,000 MG in sodium chloride 0.9% (plus) 50 ML 100 MG IV (23:10)
--- NOTE | 2019-07-03 23:59 | PM.HP ---
Providers/Chief Complaint Admitting Physician: Suzette Crump MD Primary Care Provider: Brissa Katz DO Chief Complaint: FALL/ HIT HEAD History of Present Illness Roxana Carrington is a 74 year old female who presented to the emergency room after what was felt to be a seizure and a fall. According to available information, she was standing in her kitchen and her arm started shaking and she ended up falling and hitting her head. She was not responsive after this. It is not clear if she had any loss of bowel or bladder function. No reported vomiting. EMS reported that patient could answer questions but was lethargic when they arrived. Family indicated this might be a little bit different than her usual seizures. She does have a history of epilepsy. Patient last saw Dr. Welch in April of this year. It looks like dose of Lamictal had been increased and Dilantin was being decreased due to chronic liver enzyme elevation. Dr. Welch's notes indicate that patient has several seizures a day at baseline. These vary in type from what sounds like absence seizure's generalized tonic-clonic. She has been on multiple medications without much improvement. It does not sound like a prolonged postictal status the usual for her. She is on multiple medications that can potentially contribute to alteration in mental status. That said, beyond the decreased dose of Dilantin I do not see other recent medication changes. Patient did have a left nephrectomy in May for a renal mass. I do not know the details from that. It was done in [place]. Work-up in the emergency room was unrevealing however she remained lethargic. She did hit her head. [place] to either be having a prolonged postictal state or potentially concussive symptoms. She is being admitted for further evaluation and monitoring. History is limited presently due to current mental status Review of Systems General: Reports: ROS unobtainable due to medical condition and ROS unobtainable due to mental status Medications/Allergies Home Medications Medication Instructions Recorded Confirmed Last Taken Type fluticasone fur. 100 mcg-umeclid 1 inh INHALATION QDAY 03/29/19 07/04/19 Unknown History 62.5 mcg-vilant 25 mcg inhalat.powder furosemide 40 mg tablet 40 mg PO QAM 03/29/19 07/04/19 Unknown History hydrocodone 5 mg-acetaminophen 325 1 tab PO ONCE PRN tab 03/29/19 07/04/19 Unknown History mg tablet ipratropium 0.5 mg-albuterol 3 mg 3 ml INHALATION Q4H PRN 03/29/19 07/04/19 Unknown History (2.5 mg base)/3 mL nebulization soln montelukast 10 mg tablet 10 mg PO QDAY 03/29/19 07/04/19 Unknown History potassium chloride 10 mEq 10 meq PO QDAY 03/29/19 07/04/19 Unknown History capsule,extended release diphenhydramine HCl 25 mg tablet 100 mg PO .QHS PRN tab 04/07/19 07/04/19 Unknown History atorvastatin 20 mg tablet 20 mg PO QDAY #90 tab 04/16/19 07/04/19 Unknown Rx nitroglycerin 0.4 mg sublingual 0.4 mg SUBLINGUAL Q5M PRN 30 Days 05/04/19 07/04/19 Unknown Rx tablet #25 tab phenytoin sodium extended 100 mg 100 mg PO DAILY #30 cap 05/17/19 07/04/19 Unknown Rx capsule albuterol sulfate 90 mcg/actuation 2 puff INHALATION Q4H PRN #18 gm 05/20/19 07/04/19 Unknown Rx aerosol inhaler allopurinol 100 mg tablet 100 mg PO QDAY #90 tab 05/20/19 07/04/19 Unknown Rx meclizine 25 mg tablet 50 mg PO BID #360 tab 05/20/19 07/04/19 Unknown Rx naproxen 500 mg tablet 500 mg PO BID #180 tab 05/20/19 07/04/19 Unknown Rx cetirizine 10 mg capsule 10 mg PO DAILY #30 cap 05/25/19 07/04/19 Unknown Rx aripiprazole 5 mg tablet 5 mg PO .QHS #90 tab 06/28/19 07/04/19 Unknown Rx bupropion HCl 200 mg tablet,12 hr 200 mg PO BID #180 tab 06/28/19 07/04/19 Unknown Rx sustained-release lorazepam 1 mg tablet 1 mg PO .COMPLEX #90 tab 06/28/19 07/04/19 Unknown Rx mirtazapine 15 mg tablet 15 mg PO .QHS #90 tab 06/28/19 07/04/19 Unknown Rx pramipexole 1 mg tablet 1 mg PO QDAY #30 tab 06/28/19 07/04/19 Unknown Rx varenicline 1 mg tablet 1 mg PO BID #56 tab 06/28/19 07/04/19 Unknown Rx lamotrigine 150 mg tablet 150 mg PO BID #180 tab 06/29/19 07/04/19 Unknown Rx Allergies Allergy/AdvReac Type Severity Reaction Status Date / Time ciprofloxacin Allergy Mild unknown Verified 05/17/19 10:49 niacin Allergy Mild unknown Verified 05/17/19 10:49 tetracycline Allergy Mild itching, Verified 05/17/19 10:49 rash gabapentin Allergy unknown Verified 05/17/19 10:49 Penicillins Allergy Unknown Verified 05/17/19 10:49 propoxyphene [From [place]von] Allergy Unknown Verified 05/17/19 10:49 Sulfa (Sulfonamide Allergy Unknown Verified 05/17/19 10:49 Antibiotics) Additional Medication Information Have not been able to be fully reviewed today. Looking at the records however they have been reviewed and confirmed within the last week. And Dr. Welch's recent clinic note however it states that she was to taper down on her Dilantin and then stop it and I suspect that she has. PFSH Acute PFSH: Medical History Anxiety and depression Blindness CAD (coronary artery disease) CHF (congestive heart failure) Chronic gout Circadian rhythm sleep disorder, delayed sleep phase type COPD (chronic obstructive pulmonary disease) Enrolled in chronic care management Essential hypertension Gait instability Generalized epilepsy, intractable GERD (gastroesophageal reflux disease) Hyperlipidemia, mixed Intervertebral disc disorder with radiculopathy of lumbosacral region Left kidney mass Meniere's disease, bilateral PRESTON treated with BiPAP Postictal headache PVD (peripheral vascular disease) Recurrent moderate major depressive disorder with anxiety Restless leg Surgical History H/O: hysterectomy History of appendectomy History of brain surgery (~1998) Meniere's disease History of carpal tunnel repair left History of cholecystectomy History of foot surgery bilateral Family History Mother CAD (coronary artery disease) Myocardial infarction Stroke Diabetes Father CAD (coronary artery disease) Myocardial infarction Stroke Social History Smoking and tobacco status: current every day smoker cigarettes [ Other cigarette details: 6 daily ] Alcohol intake: never Lives independently: Yes Household members: spouse Housing: House Marital status: service: No Current occupational status: retired and disabled History of recent travel: No Female Reproductive History: Para: 4 Spontaneous abortions: Yes Vitals/I&O/Wt Last Vital Signs Temp 97.9 F 07/03/19 20:00 Pulse 75 07/03/19 22:00 Resp 13 07/03/19 22:00 BP 116/74 07/03/19 22:00 Pulse Ox 98 07/03/19 22:00 Weight last 48 hrs Weight 88.451 kg Physical Exam Const: GENERAL APPEARANCE: lethargic HENMT: COMMON NORMALS: moist oral mucous membranes MOUTH: tongue not abnormal Eye: COMMON NORMALS: PERRL Neck/C-Spine: COMMON NORMALS: supple Resp: COMMON NORMALS: normal respiratory effort, no use of accessory muscles and clear to auscultation bilaterally EFFORT & INSPECTION: Yes other (Not snoring) Cardio: COMMON NORMALS: peripheral pulses 2+ throughout RATE: regular rate RHYTHM: regular rhythm HEART SOUNDS: murmur GI: COMMON NORMALS: soft to palpation and non-tender AUSCULTATION: Yes normoactive bowel sounds OTHER: Healing surgical scars Extremity: COMMON NORMALS: normal capillary refill and no clubbing, cyanosis or edema Neuro: SENSORIUM/ORIENTATION: Yes somnolent OTHER: No tremors Skin: COMMON NORMALS: no rashes or lesions noted Data : 07/05/19 05:45 07/05/19 05:45 Micro: Microbiology 07/03/19 20:40 Blood Culture - Preliminary Blood SPECIMEN COLLECTED 07/03/19 20:31 Blood Culture - Preliminary Blood SPECIMEN COLLECTED A&P Assessment and plan (1) Fall at home: [place] secondary to seizure activity. Hit her head by report and had loss of consciousness. Challenging to know if that was postictal or related to the fall and closed head injury. CT of the head and neck did not show any acute abnormalities. No acute injuries otherwise. Status: Acute Qualifiers: Encounter type: initial encounter Qualified Code(s): W19.XXXA - Unspecified fall, initial encounter; Y92.009 - Unspecified place in unspecified non-institutional (private) residence as the place of occurrence of the external cause (2) Altered mental status: [place] to be post ictal in nature. Cannot rule out a concurrent concussion. She is starting to wake up and will answer some questions and say things appropriately but does not maintain awakened state for long periods of time. Status: Acute Qualifiers: Altered mental status type: somnolence Qualified Code(s): R40.0 - Somnolence (3) Epilepsy: Longstanding. Has several seizures daily. Has had Dilantin trended downward due to liver enzyme elevation. Liver enzymes today are improved she remains on Lamictal at an increased dose for the last month or so. Status: Acute Qualifiers: Epilepsy type: other generalized Intractability: not intractable Status epilepticus: without status epilepticus Qualified Code(s): G40.409 - Other generalized epilepsy and epileptic syndromes, not intractable, without status epilepticus (4) Pneumonia: Noted on chest x-ray in the emergency room, bilateral. No reported vomiting at the scene. I do not have any history to support pneumonia. May be some atelectasis. Has already received antibiotics Status: Acute Qualifiers: Laterality: bilateral Lung location: lower lobe of lung Pneumonia type: due to unspecified organism Qualified Code(s): J18.9 - Pneumonia, unspecified organism (5) COPD (chronic obstructive pulmonary disease): Does not appear clinically acute Status: Chronic Qualifiers: COPD type: emphysema Emphysema type: panlobular Qualified Code(s): J43.1 - Panlobular emphysema (6) PRESTON treated with BiPAP: Mild hypercapnia noted on ABG Status: Chronic Additional A&P Information Observation admission for now COVID testing was sent Continue Rocephin and azithromycin for now When more alert need to get a bit more history Repeat chest x-ray tomorrow N.p.o. until more awake Hold home medicines until more awake exception of Lamictal May have to consider additional antiepileptic but given long history of trials of other medications may benefit from neurology input in this. Could consider resumption of Dilantin with load dose if needed particularly with normalization of liver enzymes Home CPAP Low risk for VTE presently Supportive care otherwise Full code Attestations Medical Necessity Statement*: Currently anticipated stay less than 2 midnights in a patient with longstanding history of seizures. She is currently lethargic suggestive of a more prolonged postictal state plus or minus concussion. Coding Level of Care Code Acute Hospice Clinical Manager for Chg Fwd Exam Comprehensive Diagnoses Fall at home W19.XXXA; Y92.009 Encounter type: initial encounter Altered mental status R40.0 Altered mental status type: somnolence Epilepsy G40.409 Epilepsy type: other generalized Intractability: not intractable Status epilepticus: without status epilepticus Pneumonia J18.9 Laterality: bilateral Lung location: lower lobe of lung Pneumonia type: due to unspecified organism COPD (chronic obstructive pulmonary disease) J43.1 COPD type: emphysema Emphysema type: panlobular PRESTON treated with BiPAP G47.33
[2019-07-04] VITALS (68 sets, daily range): BP systolic 89–151; BP diastolic 45–78; PULSE 66–88; RESP 12–27; TEMP 35.9–36.9; O2SAT 97–100
[2019-07-04] MEDS: azithromycin 500 MG in sodium chloride 0.9% 250 ML 250 MG IV (00:04)
[2019-07-04] MEDS: lactated ringers 1,000 ML 100 ML IV (00:08)
--- NOTE | 2019-07-04 02:10 | ECG_ITS ---
Measurements Intervals [place] Rate: 74 P: 67 [place]: 167 QRS: 57 QRSD: 88 T: 65 QT: 416 QTc: 462 SINUS RHYTHM POSSIBLE RIGHT VENTRICULAR CONDUCTION DELAY [RSR (QR) IN V1/V2] NONSPECIFIC T-WAVE ABNORMALITY Compared to ECG 02/16/2017 02:40:57 T-wave abnormality now present Electronically Signed On 07-04-2019 20:26:06 CDT by Gauri Gardiner M.D. [id number]
[2019-07-04] MEDS: D5-NS 0.45% + KCL 20 mEq 20 MEQ/1,000 ML BAG 75 MEQ IV (03:43)
[2019-07-04 03:44] LABS: Basophils # 0.1 10^3/uL (0.0-0.1); Basophils % 0.4 %; Eosinophils # 0.3 10^3/uL (0.0-0.8); Eosinophils % 2.4 %; Hematocrit 32.5 % (37.0-47.0); Hemoglobin 11.2 g/dL (11.5-15.3); Lymphocytes # 2.5 10^3/uL (0.8-4.8); Lymphocytes % 21.8 %; Mean Corpuscular HGB Conc 34.5 g/dL (30.0-36.0); Mean Corpuscular Hemoglobin 34.1 pg (28.0-34.0); Mean Corpuscular Volume 99.1 fL (81-99); Mean Platelet Volume 8.8 fL (7.4-10.4); Monocytes # 0.9 10^3/uL (0.2-0.9); Monocytes % 8.1 %; Neutrophils # 7.8 10^3/uL (1.8-7.7); Nucleated Red Blood Cells % 0 %; Platelet Count 376 10^3/cmm (130-400); Red Blood Count 3.28 10^6/uL (4.1-5.3); Red Cell Distribution Width 13.7 % (12.1-15.1); White Blood Count 11.7 10^3/uL (4.0-10.0)
[2019-07-04 03:55] LABS: Alanine Aminotransferase 10 U/L (0-33); Albumin Level 3.7 g/dL (3.5-5.2); Alkaline Phosphatase 100 IU/L (35-105); Anion Gap 16.7 (5-19); Aspartate Amino Transferase 16 U/L (0-32); Blood Urea Nitrogen 12 mg/dL (8-23); Calcium 8.9 mg/dL (8.5-10.5); Carbon Dioxide 28 mmol/L (22-29); Chloride 98 mmol/L (98-107); Globulin 2.4 g/dL (1.3-4.6); Glucose 107 mg/dL (65-115); Osmolality Calculated 285 mOsm/kg (285-295); Potassium 3.7 mmol/L (3.5-5.1); Sodium 139 mmol/L (136-145); Total Bilirubin 0.2 mg/dL (0.15-1.2); Total Protein 6.1 g/dL (6.6-8.7)
[2019-07-04 03:58] LABS: Troponin 5 6HR 15.29 ng/mL (0-10); Troponin 5 6HR Delta 2.29 ng/L (0-12)
[2019-07-04 04:05] LABS: Magnesium 1.7 mg/dL (1.7-2.3)
[2019-07-04] MEDS: lamoTRIgine 100 mg Tablet 150 MG PO ×2 (08:24→17:59)
--- NOTE | 2019-07-04 09:48 | PC.NURSE ---
obtained permission to talk to Natividad Carrington pt [id number].
--- NOTE | 2019-07-04 12:24 | PC.NURSE ---
pt reports that her hearing aids are not in her room. Staff searched room and they were not located. ER, CT and laundry called to have them check. Young, from CT states that he took the left one out and put it in a container with 2 hair tyes and put on the bed with the pt. ER says they do not have them. Angelique, clinical resource manager notified.
--- NOTE | 2019-07-04 14:00 | P.PN_ITS ---
Subjective Subjective: Interval history: Patient states that she has 2 types of seizures, big seizures and small seizures, big seizures usually occur on a weekly basis, when she typically loses consciousness, she has generalized shaking, she usually can feel them coming on usually will go to sleep before it comes on. She states that her small seizures occur a few times a day, and usually there are staring spells, lasting a few seconds to a minute. Patient states that she has had these seizures for a long period of time, has failed multiple courses of antiseizure medications, currently is on Lamictal, and her Dilantin was slowly weaned down as she had liver function abnormalities related to the Dilantin Patient states that last thing she remembers was she was standing up in her kitchen, after that she cannot remember anything, apparently patient fell hit her head, and generalized tonic-clonic seizure Currently denies headaches, blurry vision, neck ache, back pain, any joint pain Denies fevers, chills, recent travel, any known exposure to COVID-19, Vitals/I&O/Wt Last Vital Signs Temp 97.9 F 07/03/19 20:00 Pulse 79 07/04/19 12:15 Resp 16 07/04/19 12:15 BP 121/66 07/04/19 12:15 Pulse Ox 99 07/04/19 12:15 07/03/19 07/04/19 07/04/19 22:59 06:59 14:59 Intake Total 700 / 700 380 / 380 Balance 700 / 700 380 / 380 Weight last 48 hrs Weight 88.451 kg Physical Exam Const: COMMON NORMALS: no apparent distress and oriented x3 HENMT: COMMON NORMALS: normocephalic HEAD & SCALP: normocephalic Neck/C-Spine: COMMON NORMALS: no JVD Resp: COMMON NORMALS: normal respiratory effort, no retractions, no use of accessory muscles and clear to auscultation bilaterally AUSCULTATION: clear to auscultation bilaterally Cardio: COMMON NORMALS: no JVD, regular rate, regular rhythm, S1 normal heart sound and S2 normal heart sound RATE: regular rate RHYTHM: regular rhythm HEART SOUNDS: S1 normal and S2 normal GI: COMMON NORMALS: normal to inspection, nondistended, normoactive bowel sounds, soft to palpation, non-tender, no hepatosplenomegaly, no masses and no bruits PALPATION: Yes soft and Yes no hepatosplenomegaly Extremity: COMMON NORMALS: normal capillary refill, no clubbing, cyanosis or edema, no calf tenderness and no pedal edema Neuro: COMMON NORMALS: oriented x3 Psych: COMMON NORMALS: mental status grossly normal Data : 07/04/19 03:20 07/04/19 03:20 Micro: Microbiology 07/03/19 20:40 Blood Culture - Preliminary Blood SPECIMEN COLLECTED 07/03/19 20:31 Blood Culture - Preliminary Blood SPECIMEN COLLECTED A&P Assessment and plan (1) Fall at home: [place] secondary to seizure activity. Hit her head by report and had loss of consciousness. Challenging to know if that was postictal or related to the fall and closed head injury. CT of the head and neck did not show any acute abnormalities. No acute injuries otherwise. Status: Acute Qualifiers: Encounter type: initial encounter Qualified Code(s): W19.XXXA - Unspecified fall, initial encounter; Y92.009 - Unspecified place in unspecified non-institutional (private) residence as the place of occurrence of the external cause (2) Altered mental status: [place] to be post ictal in nature. Currently alert oriented x3, in the ICU, answering all questions appropriately We will monitor for concussion symptoms s Status: Acute Qualifiers: Altered mental status type: somnolence Qualified Code(s): R40.0 - Somnolence (3) Epilepsy: Longstanding. Has several seizures daily. Has had Dilantin trended downward due to liver enzyme elevation. Liver enzymes today are improved she remains on Lamictal at an increased dose for the last month or so. Continue Lamictal 150 twice daily We will continue her home Dilantin 100 twice daily Will reach out to neurology tomorrow morning Status: Acute Qualifiers: Epilepsy type: other generalized Intractability: not intractable Status epilepticus: without status epilepticus Qualified Code(s): G40.409 - Other generalized epilepsy and epileptic syndromes, not intractable, without status epilepticus (4) Pneumonia: Noted on chest x-ray in the emergency room, bilateral. No reported vomiting at the scene. I do not have any history to support pneumonia. May be some atelectasis. Possibly aspiration related to seizure and fall, continue antibiotics for now Status: Acute Qualifiers: Laterality: bilateral Lung location: lower lobe of lung Pneumonia type: due to unspecified organism Qualified Code(s): J18.9 - Pneumonia, unsp ecified organism (5) COPD (chronic obstructive pulmonary disease): Does not appear clinically acute Status: Chronic Qualifiers: COPD type: emphysema Emphysema type: panlobular Qualified Code(s): J43.1 - Panlobular emphysema (6) PRESTON treated with BiPAP: Mild hypercapnia noted on ABG Status: Chronic Additional A&P Information Inpatient admission for now COVID testing was sent Continue Rocephin and azithromycin for now Cardiac diet Home CPAP Low risk for VTE presently Supportive care otherwise Full code Attestations Medical Necessity Statement*: She requires continued hospitalization due to epilepsy, pneumonia Coding Level of Care Code Acute Monument Letterer for Chg Fwd Diagnoses Fall at home W19.XXXA; Y92.009 Encounter type: initial encounter Altered mental status R40.0 Altered mental status type: somnolence Epilepsy G40.409 Epilepsy type: other generalized Intractability: not intractable Status epilepticus: without status epilepticus Pneumonia J18.9 Laterality: bilateral Lung location: lower lobe of lung Pneumonia type: due to unspecified organism COPD (chronic obstructive pulmonary disease) J43.1 COPD type: emphysema Emphysema type: panlobular PRESTON treated with BiPAP G47.33
[2019-07-04 16:15] LABS: Coronavirus Lab Test PTC Negative
[2019-07-04] MEDS: allopurinol 100 mg Tablet PO (17:58)
[2019-07-04] MEDS: montelukast sodium 10 mg Tablet PO (17:58)
[2019-07-04] MEDS: atorvastatin 40 mg Tablet 20 MG PO (17:58)
[2019-07-04] MEDS: buPROPion SR (12 HR) 100 mg Tablet 200 MG PO (17:59)
[2019-07-04] MEDS: phenytoin ER 100 mg Capsule PO (17:59)
[2019-07-04] MEDS: mirtazapine 15 mg Tablet PO (21:45)
[2019-07-04] MEDS: ARIPiprazole 10 mg Tablet 5 MG PO (21:45)
[2019-07-05] VITALS: BP 133/78; PULSE 77; RESP 17; TEMP 36.6; O2SAT 100
[2019-07-05] MEDS: cefTRIAXone 1,000 MG in sodium chloride 0.9% (plus) 50 ML 100 MG IV (03:19)
[2019-07-05 04:00] VITALS: BP 150/72; PULSE 78; RESP 18; TEMP 36.6; O2SAT 96
--- NOTE | 2019-07-05 06:00 | XR_ITS ---
WS: [id number] CHEST 2 VIEWS HISTORY: bilateral infiltrates COMPARISON: 07/03/2019 Lungs: Improved aeration bilaterally. No pneumonia. Pulmonary vasculature is normal. Cardiac size: Mildly enlarged cardiac silhouette. Mediastinum/Aorta: Partially calcified aorta. Bones: Normal. XR/XR chest 2V* [id number] IMPRESSION: Improved aeration bilaterally. No pneumonia.
[2019-07-05] MEDS: FUROsemide 40 mg Tablet PO (06:09)
[2019-07-05 06:13] LABS: Basophils # 0.1 10^3/uL (0.0-0.1); Basophils % 0.6 %; Eosinophils # 0.4 10^3/uL (0.0-0.8); Hematocrit 33.3 % (37.0-47.0); Hemoglobin 11.2 g/dL (11.5-15.3); Lymphocytes # 2.2 10^3/uL (0.8-4.8); Lymphocytes % 24.7 %; Mean Corpuscular HGB Conc 33.6 g/dL (30.0-36.0); Mean Corpuscular Hemoglobin 34.5 pg (28.0-34.0); Mean Corpuscular Volume 102.5 fL (81-99); Mean Platelet Volume 8.9 fL (7.4-10.4); Monocytes # 0.7 10^3/uL (0.2-0.9); Monocytes % 8.3 %; Neutrophils # 5.4 10^3/uL (1.8-7.7); Neutrophils % 62.2 %; Nucleated Red Blood Cells % 0 %; Platelet Count 364 10^3/cmm (130-400); Red Blood Count 3.25 10^6/uL (4.1-5.3); Red Cell Distribution Width 14.1 % (12.1-15.1); White Blood Count 8.7 10^3/uL (4.0-10.0)
[2019-07-05 06:27] LABS: Alanine Aminotransferase 15 U/L (0-33); Albumin Level 3.7 g/dL (3.5-5.2); Alkaline Phosphatase 101 IU/L (35-105); Aspartate Amino Transferase 16 U/L (0-32); Blood Urea Nitrogen 9 mg/dL (8-23); Calcium 9.9 mg/dL (8.5-10.5); Carbon Dioxide 28 mmol/L (22-29); Chloride 102 mmol/L (98-107); Globulin 2.5 g/dL (1.3-4.6); Glucose 112 mg/dL (65-115); Magnesium 1.9 mg/dL (1.7-2.3); Osmolality Calculated 289 mOsm/kg (285-295); Phosphorus 3.1 mg/dL (2.5-4.5); Sodium 141 mmol/L (136-145); Total Bilirubin 0.2 mg/dL (0.15-1.2); Total Protein 6.2 g/dL (6.6-8.7)
[2019-07-05 07:31] VITALS: BP 152/79; PULSE 80; RESP 20; TEMP 36.6; O2SAT 99
[2019-07-05 08:27] VITALS: PULSE 93; O2SAT 98
[2019-07-05] MEDS: azithromycin 250 mg Tablet PO (08:40)
[2019-07-05] MEDS: allopurinol 100 mg Tablet PO (08:40)
[2019-07-05] MEDS: buPROPion SR (12 HR) 100 mg Tablet 200 MG PO (08:41)
[2019-07-05] MEDS: phenytoin ER 100 mg Capsule PO (08:41)
[2019-07-05] MEDS: lamoTRIgine 100 mg Tablet 150 MG PO (08:42)
[2019-07-05] MEDS: pramipexole 0.25 mg Tablet 1 MG PO (08:42)
[2019-07-05] MEDS: montelukast sodium 10 mg Tablet PO (08:42)
[2019-07-05] MEDS: atorvastatin 40 mg Tablet 20 MG PO (08:42)
--- NOTE | 2019-07-05 09:24 | P.DS_ITS ---
Discharge Providers Date of Admission: 07/03/19 23:22 Date of Discharge: July 05, 2019 Attending Provider at Admission: Suzette Crump MD Attending Provider at Discharge: Pato Lux MD Primary Care Provider: Sweetie Santiago MD Diagnoses at Discharge Discharge Diagnosis (1) Fall at home: Status: Acute Qualifiers: Encounter type: initial encounter Qualified Code(s): W19.XXXA - Unspecified fall, initial encounter; Y92.009 - Unspecified place in unspecified non-institutional (private) residence as the place of occurrence of the external cause (2) Altered mental status: Status: Acute Qualifiers: Altered mental status type: somnolence Qualified Code(s): R40.0 - Somnolence (3) Epilepsy: Status: Acute Qualifiers: Epilepsy type: other generalized Intractability: not intractable Status epilepticus: without status epilepticus Qualified Code(s): G40.409 - Other generalized epilepsy and epileptic syndromes, not intractable, without status epilepticus (4) Pneumonia: Status: Acute Qualifiers: Laterality: bilateral Lung location: lower lobe of lung Pneumonia type: due to unspecified organism Qualified Code(s): J18.9 - Pneumonia, unspecified organism (5) COPD (chronic obstructive pulmonary disease): Status: Chronic Qualifiers: COPD type: emphysema Emphysema type: panlobular Qualified Code(s): J43.1 - Panlobular emphysema (6) PRESTON treated with BiPAP: Status: Chronic Reason for Visit Reason for Visit: Reason For Visit: FALL/ HIT HEAD Hospital Course Discharge Summary: This is a 74-year-old female with a past medical history of anxiety and depression, CAD, CHF, COPD, GERD, hyperlipidemia, history of left kidney mass, PRESTON on BiPAP, who presents to the emergency room due to evaluation of seizure and a fall. Patient had a seizure at home, generalized tonic-clonic seizure, with loss of consciousness, and head trauma when she fell, she has a history of epilepsy, she was on Lamictal 150 mg twice daily, her Dilantin dose was being weaned off due to concerns for transaminitis and renal failure. Patient was initially monitored in the intensive care unit, was postictal, but her demeanor improved, she is alert oriented x3, answering all questions appropriately, was moved to general medical floors, she did well. After discussion with neurology, Dr. Welch, her Dilantin was restarted 100 mg twice daily, with close follow-up with Dr. Welch in her office. For her fall, secondary to seizure activity, she hit her head and had loss of consciousness, CT of the head and neck had no acute findings, patient denied any headaches, blurry vision, neck pain, joint pains. Patient was advised to monitor for concussion-like symptoms and if so please follow-up with primary care. In addition on admission patient was found to have bilateral lower lobe infiltrates, concerning for pneumonia, she was started on broad-spectrum antibiotics, remained afebrile, cultures remained unremarkable, she was discharged on azithromycin. Physical Exam Const: COMMON NORMALS: no apparent distress and oriented x3 HENMT: COMMON NORMALS: normocephalic HEAD & SCALP: normocephalic Neck/C-Spine: COMMON NORMALS: no JVD Resp: COMMON NORMALS: normal respiratory effort, no retractions, no use of accessory muscles and clear to auscultation bilaterally AUSCULTATION: clear to auscultation bilaterally Cardio: COMMON NORMALS: no JVD, regular rate, regular rhythm, S1 normal heart sound and S2 normal heart sound RATE: regular rate RHYTHM: regular rhythm HEART SOUNDS: S1 normal and S2 normal GI: COMMON NORMALS: normal to inspection, nondistended, normoactive bowel sounds, soft to palpation, non-tender, no hepatosplenomegaly, no masses and no bruits PALPATION: Yes soft and Yes no hepatosplenomegaly Extremity: COMMON NORMALS: normal capillary refill, no clubbing, cyanosis or edema, no calf tenderness and no pedal edema Neuro: COMMON NORMALS: oriented x3 Psych: COMMON NORMALS: mental status grossly normal Discharge Data Data Completed and Pending: Completed Studies During Hospitalization Category Date Time Status CT cervical spin wo con* [id number] Stat Cat Scan 07/03/19 20:[address] head wo con* 7 0450 Stat Cat Scan 07/03/19 20:09 Completed XR chest 1V benito ble [id number] Stat Exams 07/03/19 20:10 Completed XR chest 2V* [id number] 6 Routine Exams 07/05/19 06:00 Completed Pending at discharge Category Date Time Status Blood Culture Sta t Lab 07/03/19 20:40 Results Complete Blood Co unt w/Auto AM LABS Lab 07/06/19 04:00 Ordered Complete Blood Co unt w/Auto AM LABS Lab 07/07/19 04:00 Ordered Comprehensive Met abolic Panel AM LA BS Lab 07/06/19 04:00 Ordered Comprehensive Met abolic Panel AM LA BS Lab 07/07/19 04:00 Ordered Magnesium AM LABS Lab 07/06/19 04:00 Ordered Magnesium AM LABS Lab 07/07/19 04:00 Ordered Phosphorus AM LAB S Lab 07/06/19 04:00 Ordered Phosphorus AM LAB S Lab 07/07/19 04:00 Ordered Labs from last 24 hours 07/05/19 07/05/19 07/03/19 05:45 05:45 23:30 WBC 8.7 RBC 3.25 L Hgb 11.2 L Hct 33.3 L MCV 102.5 H MCH 34.5 H MCHC 33.6 RDW 14.1 Plt Count 364 MPV 8.9 Neut % (Auto) 62.2 Lymph % (Auto) 24.7 [place] % (Auto) 8.3 Eos % (Auto) 4.0 Baso % (Auto) 0.6 Neut # (Auto) 5.4 Lymph # (Auto) 2.2 [place] # (Auto) 0.7 Eos # (Auto) 0.4 Baso # (Auto) 0.1 Nucleated RBC % (a uto) 0 Nucleated RBCs # 0.0 Sodium 141 Potassium 4.0 Chloride 102 Carbon Dioxide 28 Anion Gap 15.0 BUN 9 Creatinine 0.8 Glucose 112 Calculated Osmolal ity 289 Calcium 9.9 Phosphorus 3.1 Magnesium 1.9 Total Bilirubin 0.2 AST 16 ALT 15 Alkaline Phosphata se 101 Total Protein 6.2 L Albumin 3.7 Globulin 2.5 Nasal/Oral COVID-1 9 PCR Negative Vitals: Last Vital Signs Temp 97.9 F 07/05/19 07:31 Pulse 93 07/05/19 08:27 Resp 20 H 07/05/19 07:31 BP 152/79 07/05/19 07:31 Pulse Ox 98 07/05/19 08:27 Discharge Plan Discharge Patient Disposition: Home, Self-Care Condition: Stable Prescriptions: New phenytoin sodium extended 100 mg Capsule 100 mg PO BID 30 Days Qty: 60 RF: 0 azithromycin 250 mg tablet 250 mg PO DAILY 2 Days Qty: 2 RF: 0 Continued bupropion HCl 200 mg tablet sustained-release 12 hr 200 mg PO BID Qty: 180 RF: 2 aripiprazole 5 mg tablet 5 mg PO .QHS Qty: 90 RF: 2 mirtazapine [Remeron] 15 mg tablet 15 mg PO .QHS Qty: 90 RF: 2 Chantix 1 mg tablet 1 mg PO BID Qty: 56 RF: 2 lorazepam 1 mg tablet 1 mg PO .COMPLEX Qty: 90 RF: 3 diphenhydramine HCl [Benadryl Allergy] 25 mg tablet 100 mg PO .QHS PRN (Reason: Allergic Reaction) RF: 0 hydrocodone-acetaminophen 5-325 mg tablet 1 tab PO ONCE PRN (Reason: Pain) RF: 0 Trelegy Ellipta 100-62.5-25 mcg blister with device 1 inh INHALATION QDAY RF: 0 furosemide 40 mg tablet 40 mg PO QAM RF: 0 potassium chloride 10 mEq capsule, extended release 10 meq PO QDAY RF: 0 ipratropium-albuterol 0.5 mg-3 mg(2.5 mg base)/3 mL solution for nebulization 3 ml INHALATION Q4H PRN (Reason: Shortness Of Breath Or Wheezing) RF: 0 montelukast [Singulair] 10 mg tablet 10 mg PO QDAY RF: 0 atorvastatin [Lipitor] 20 mg tablet 20 mg PO QDAY Qty: 90 RF: 0 nitroglycerin [Nitrostat] 0.4 mg tablet, sublingual 0.4 mg SUBLINGUAL Q5M PRN (Reason: chest pain) 30 Days Qty: 25 RF: 6 allopurinol 100 mg tablet 100 mg PO QDAY Qty: 90 RF: 0 naproxen 500 mg tablet 500 mg PO BID Qty: 180 RF: 0 albuterol sulfate [Ventolin HFA] 90 mcg/actuation HFA aerosol inhaler 2 puff INHALATION Q4H PRN (Reason: shortness of breath or wheezing) Qty: 18 RF: 2 All Day Allergy (cetirizine) 10 mg capsule 10 mg PO DAILY Qty: 30 RF: 0 pramipexole 1 mg tablet 1 mg PO QDAY Qty: 30 RF: 5 lamotrigine 150 mg tablet 150 mg PO BID Qty: 180 RF: 3 Discontinued phenytoin sodium extended 100 mg capsule 100 mg PO DAILY Qty: 30 RF: 0 meclizine 25 mg tablet 50 mg PO BID Qty: 360 RF: 0 Discharge Orders: Discharge Order (Routine); Ordered 07/05/19 Ordered By: Pato Lux Referrals: Rachel Welch MD [Physician] - 2 weeks Brissa aKtz DO [Physician] - Louisa Jaramillo DO [Family Provider] - Discharge Diet: Cardiac Discharge Activity: Resume usual activity Patient Instructions: Epilepsy (DC), Seizures Activity Restrictions/Additional Instructions: -If you have repeat seizures please come back to the emergency room -Continue Lamictal 150 mg twice daily -Continue Dilantin 100 mg twice daily -Monitor for fevers, chills, cough, if so follow-up with primary care -Seizure precautions, no driving Discharge Attestations Time Spent in Discharge Care*: less than 30 min Quality Metrics Clinical Quality Measures During this hospital stay, did patient experience: None Coding Level of Care Code Acute Strategic Marketing Manager for Chg Fwd Diagnoses Fall at home W19.XXXA; Y92.009 Encounter type: initial encounter Altered mental status R40.0 Altered mental status type: somnolence Epilepsy G40.409 Epilepsy type: other generalized Intractability: not intractable Status epilepticus: without status epilepticus Pneumonia J18.9 Laterality: bilateral Lung location: lower lobe of lung Pneumonia type: due to unspecified organism COPD (chronic obstructive pulmonary disease) J43.1 COPD type: emphysema Emphysema type: panlobular PRESTON treated with BiPAP G47.33
[2019-07-05 10:05] VITALS: BP 152/79; PULSE 93; RESP 20; TEMP 36.6; O2SAT 98
[2019-07-05 11:17] VITALS: BP 132/78; PULSE 76; RESP 18; TEMP 36.6; O2SAT 93
== END 2019-07-05 11:29 | disposition home or self-care (01) ==
LOC: ER 23:22 → ICU 23:47 → MEDSURG 07-04 16:31
PROVIDERS: Admitting Provider Hospitalist; Emergency Provider Emergency Medicine; Family Provider Family Medicine; PCP Family Medicine; Visit Provider Family Medicine
DX: R40.0 Somnolence (principal); Z91.81 History of falling; G40.409 Other generalized epilepsy and epileptic syndromes, not intractable, without status epilepticus; J18.9 Pneumonia, unspecified organism; J43.1 Panlobular emphysema; G47.33 Obstructive sleep apnea (adult) (pediatric); I25.10 Atherosclerotic heart disease of native coronary artery without angina pectoris; I11.0 Hypertensive heart disease with heart failure; I50.9 Heart failure, unspecified; E78.5 Hyperlipidemia, unspecified; Z82.49 Family history of ischemic heart disease and other diseases of the circulatory system; Z83.3 Family history of diabetes mellitus; F17.210 Nicotine dependence, cigarettes, uncomplicated
CPT/HCPCS: 12345; 36415; 36600; 70450; 71045; 71046; 72125; 80051; 80053; 80185; 81001; 82810; 83605; 83735; 83986; 84100; 84484; 85025; 87040; 87635; 87804; 93005; 96361; 96365; 96366; 96367; 96368; 99284; 99291; G0378; J0456; J0696; J7050; Q0144

== ENCOUNTER → 2019-07-13 12:46 | Outpatient (BNVA) | payer MEDICARE, MEDICAID, SELFPAY | PROVIDERS: Family Provider Family Medicine; PCP Family Medicine; Visit Provider Specialist | DX: G40.409 Other generalized epilepsy and epileptic syndromes, not intractable, without status epilepticus (principal); F17.210 Nicotine dependence, cigarettes, uncomplicated | CPT/HCPCS: 95816 ==

== ENCOUNTER 2019-07-16 14:03 | Outpatient (CLI) | payer MEDICARE, MEDICAID, SELFPAY ==
--- NOTE | 2019-07-16 14:15 | XR_ITS ---
WS: [id number] SCREENING DEXA SCAN [employer] CLINICAL INFORMATION: DEXA COMPARISON: None. FINDINGS: The L1-L4 bone mineral density measures 0.819 g/cm2. This corresponds to a T score score of -3.0 and Z score of -1.2. Left femoral neck bone mineral density measures 0.715 g/cm2. This corresponds to a T score of -2.3 an d Z score of -0.7. Right femoral neck bone mineral density measures 0.715 g/cm2. This corresponds to a T score -2.3of an d Z score of -0.7. Mean femoral neck bone mineral density measures 0.715 g/cm2. This corresponds to a T score of -2.3 an d Z score of -0.7. XR/XR DEXA axial skeleton* [id number] IMPRESSION: Osteoporosis Patient's FRAX calculated 10 year probability for major osteoporotic fracture i s 38.6 % and osteoporotic hip fracture is 15.5%.
== END 2019-07-16 14:04 | disposition home or self-care (01) ==
LOC: RADWPI 14:08
PROVIDERS: Family Provider Family Medicine; PCP Family Medicine; Visit Provider Family Medicine
DX: Z78.0 Asymptomatic menopausal state (principal); M81.0 Age-related osteoporosis without current pathological fracture
CPT/HCPCS: 77080

== ENCOUNTER → 2019-07-20 09:54 | Outpatient (BNVA) | payer MEDICARE, MEDICAID, SELFPAY | PROVIDERS: Family Provider Family Medicine; PCP Family Medicine; Visit Provider Specialist | DX: S06.0X9A Concussion with loss of consciousness of unspecified duration, initial encounter (principal); X58.XXXA Exposure to other specified factors, initial encounter; G40.409 Other generalized epilepsy and epileptic syndromes, not intractable, without status epilepticus; F17.210 Nicotine dependence, cigarettes, uncomplicated | CPT/HCPCS: 99214 ==

== ENCOUNTER 2019-08-03 09:31 | Emergency (ER) | payer MEDICARE, MEDICAID, SELFPAY ==
[2019-08-03 09:34] VITALS: BP 136/68; PULSE 75; RESP 16; TEMP 36.9; O2SAT 96; BMI 28.8
--- NOTE | 2019-08-03 09:50 | PC.NURSE ---
In patients room to start IV. Patient reports that she wears oxygen at home. Patient placed on 2 L of oxygen via NC.
--- NOTE | 2019-08-03 09:53 | CT_ITS ---
WS: [id number] CT ABDOMEN AND PELVIS WITH CONTRAST HISTORY: fall TECHNIQUE: Imaging performed of the abdomen and pelvis with IV contrast. Single phase imaging of the abdomen. Coronal and sagittal reformats are submitted. All CT scans at [facility] use at least one of these dose optimization techniques: automated exposure control; mA and/or kV adjustment per patient size (includes targeted exams where dose is matched to clinical indication); or iterativ e reconstruction. IV CONTRAST: Visipaque 320; 95 mL IV. Oral contrast: No DLP: 1288.81 mGy.cm COMPARISON: 04/13/2019 Lower thorax: Prominent pleural fat at the RIGHT lung base. Mild dependent changes at the lung bases with increased pleural fat. Heart is normal size. No hiatal hernia. Liver/biliary system: Normal size with no intrahepatic dilatation. Gallbladder: Normal. No gallstones or wall thickening. No pericholecystic fluid. Pancreas: Normal. Spleen: Normal. Adrenal glands: Normal. Right kidney: Normal. Left kidney: Prior LEFT nephrectomy. Postsurgical changes are noted in the nephrectomy bed. New since 04/13/2019. No recurrent mass or soft tissue abnormalities. Aorta: Atherosclerosis with no aneurysm. Lymphadenopathy: None. Free fluid: None. GI tract: No GI tract obstruction. Abdominal wall: Postsurgical changes are noted along the anterior abdominal wall. No complications or abscess. Pelvis: Johnson catheter in a nondistended urinary bladder. There is a very tiny amount of air in the e xpected location of the obliterated year radius. This could be a small amount of air from the cathete r insertion. Infected ureteral diverticulum or cyst should be considered also. Bones: No fractures or cord compression. CT/CT abdomen pelvis w con* [id number] IMPRESSION: 1. No acute abdominal or pelvic abnormalities. 2. Status post LEFT nephrectomy with postsurgical changes at the nephrectomy b ed. 3. Johnson catheter in good position. 4. Tiny amount of air along the urachal remnant. This maybe air within a dive rticulum from the Johnson catheter or an infected urachus.
--- NOTE | 2019-08-03 09:54 | W.ED.FEMALGU ---
HPI - Female Genitourinary General: Chief complaint: Urogenital-Female Stated complaint: fell 08/01, has not urinated since Time Seen by Provider: 08/03/19 09:38 History of Present Illness: HPI Narrative: Patient states that she fell to the ground yesterday and has not been able to urinate since. Patient is concerned because she had a nephrectomy done at the end of May due to a mass. Patient does have some low back pain but her primary concern is the ability to urinate. MD elicited complaint: difficulty urinating Onset (ago): day(s) (1) Severity: severe Consistency: constant Urinary symptoms: Difficulty Urinating Exacerbating factors: none Relieving factors: none Review of Systems General: Reports: 10 or more systems reviewed and unremarkable except in HPI and below PFSH ED PFSH: Medical History Anxiety and depression Blindness CAD (coronary artery disease) CHF (congestive heart failure) Chronic gout Circadian rhythm sleep disorder, delayed sleep phase type COPD (chronic obstructive pulmonary disease) Enrolled in chronic care management Essential hypertension Gait instability Generalized epilepsy, intractable GERD (gastroesophageal reflux disease) Hyperlipidemia, mixed Intervertebral disc disorder with radiculopathy of lumbosacral region Meniere's disease, bilateral PRESTON treated with BiPAP Polyneuropathy, peripheral sensorimotor axonal Postictal headache PVD (peripheral vascular disease) Recurrent moderate major depressive disorder with anxiety Restless leg Surgical History H/O: hysterectomy History of appendectomy History of brain surgery (~1998) Meniere's disease History of carpal tunnel repair left History of cholecystectomy History of foot surgery bilateral Left kidney mass 06/07/2019 Dr. [facility] [place], [place]. Left partial nephrectomy Family History Mother CAD (coronary artery disease) Myocardial infarction Stroke Diabetes Father CAD (coronary artery disease) Myocardial infarction Stroke Social History Smoking and tobacco status: never smoked Alcohol intake: never Household members: spouse Marital status: Current occupational status: retired and disabled History of recent travel: No Female Reproductive History: Para: 4 Spontaneous abortions: Yes Physical Exam Const: COMMON NORMALS: patient oriented x3 HENMT: COMMON NORMALS: normocephalic HEAD & SCALP: normocephalic Neck/C-Spine: COMMON NORMALS: full ROM and no JVD CERVICAL SPINE: Yes cervical ROM normal, No cervical ROM abnormal, No pain with cervical ROM and No Cervical spine tenderness Resp: COMMON NORMALS: normal respiratory effort and clear to auscultation bilaterally AUSCULTATION: clear to auscultation bilaterally Cardio: COMMON NORMALS: no JVD, regular rate and regular rhythm RATE: regular rate RHYTHM: regular rhythm Back/Pelvis: LUMBAR SPINE/LOWER BACK: Yes lumbar ROM normal, Yes pain with ROM, Yes lumbar spinal tenderness and Yes paraspinal muscle tenderness Extremity: COMMON NORMALS: normal to inspection and full ROM Neuro: COMMON NORMALS: patient oriented x3, moves all extremities, no focal motor deficits and no sensory deficits noted Course Vital Signs: Vital signs: Vital Signs Temperature 98.4 F 08/03/19 09:34 Pulse Rate 65 08/03/19 12:01 Respiratory Rate 18 08/03/19 12:01 Blood Pressure 170/63 08/03/19 12:01 Pulse Oximetry 100 08/03/19 12:01 MDM - Female Lab Data: Labs: Lab Results 08/03/19 08/03/19 08/03/19 Range/Units 08:58 09:51 09:51 WBC 8.3 (4.0-10.0) 10^3/ uL RBC 3.45 L (4.1-5.3) 10^6/u L Hgb 11.8 (11.5-15.3) g/dL Hct 34.1 L (37.0-47.0) % MCV 98.8 (81-99) fL MCH 34.2 H (28.0-34.0) pg MCHC 34.6 (30.0-36.0) g/dL RDW 13.4 (12.1-15.1) % Plt Count 349 (130-400) 10^3/c mm MPV 8.8 (7.4-10.4) fL Neut % (Auto) 64.0 % Lymph % (Auto) 23.5 % [place] % (Auto) 8.0 % Eos % (Auto) 3.1 % Baso % (Auto) 0.8 % Neut # (Auto) 5.3 (1.8-7.7) 10^3/u L Lymph # (Auto) 1.9 (0.8-4.8) 10^3/u L [place] # (Auto) 0.7 (0.2-0.9) 10^3/u L Eos # (Auto) 0.3 (0.0-0.8) 10^3/u L Baso # (Auto) 0.1 (0.0-0.1) 10^3/u L Nucleated RBC % (a uto) 0 % Nucleated RBCs # 0.0 /100WBC Sodium 137 (136-145) mmol/L Potassium 3.5 (3.5-5.1) mmol/L Chloride 97 L (98-107) mmol/L Carbon Dioxide 28 (22-29) mmol/L Anion Gap 15.5 (5-19) BUN 13 (8-23) mg/dL Creatinine 1.0 H (0.5-0.9) mg/dL Glucose 135 H (65-115) mg/dL Calculated Osmolal ity 282 L (285-295) mOsm/k g Calcium 9.5 (8.5-10.5) mg/dL Total Bilirubin 0.2 (0.15-1.2) mg/dL AST 17 (0-32) U/L ALT 19 (0-33) U/L Alkaline Phosphata se 136 H (35-105) IU/L Total Protein 6.7 (6.6-8.7) g/dL Albumin 4.0 (3.5-5.2) g/dL Globulin 2.7 (1.3-4.6) g/dL Urine Color Yellow (Yellow) Urine Appearance Clear (CLEAR) Urine pH 5 (5-7) Ur Specific Gravit y 1.015 (1.005-1.030) Urine Protein Neg (Negative) Urine Glucose (UA) Norm (Normal) Urine Ketones Negative (Negative) Urine Blood Neg (Negative) Urine Nitrate Negative (Negative) Urine Bilirubin Neg (NEGATIVE) Urine Urobilinogen Norm (Negative) mg/dL Ur Leukocyte Bev ase Negative (Negative) Discharge Plan Discharge Patient Disposition: Home, Self-Care Clinical Impression: Acute urinary retention Fall at home Qualifiers: Encounter type: initial encounter Qualified Code(s): W19.XXXA - Unspecified fall, initial encounter Condition: Stable Prescriptions: No Action bupropion HCl 200 mg tablet sustained-release 12 hr 200 mg PO BID Qty: 180 RF: 2 aripiprazole 5 mg tablet 5 mg PO .QHS Qty: 90 RF: 2 mirtazapine [Remeron] 15 mg tablet 15 mg PO .QHS Qty: 90 RF: 2 Chantix 1 mg tablet 1 mg PO BID Qty: 56 RF: 2 lorazepam 1 mg tablet 1 mg PO .COMPLEX Qty: 90 RF: 3 diphenhydramine HCl [Benadryl Allergy] 25 mg tablet 100 mg PO .QHS PRN (Reason: Allergic Reaction) RF: 0 hydrocodone-acetaminophen 5-325 mg tablet 1 tab PO ONCE PRN (Reason: Pain) RF: 0 Trelegy Ellipta 100-62.5-25 mcg blister with device 1 inh INHALATION QDAY RF: 0 furosemide 40 mg tablet 40 mg PO QAM RF: 0 potassium chloride 10 mEq capsule, extended release 10 meq PO QDAY RF: 0 ipratropium-albuterol 0.5 mg-3 mg(2.5 mg base)/3 mL solution for nebulization 3 ml INHALATION Q4H PRN (Reason: Shortness Of Breath Or Wheezing) RF: 0 montelukast [Singulair] 10 mg tablet 10 mg PO QDAY RF: 0 atorvastatin [Lipitor] 20 mg tablet 20 mg PO QDAY Qty: 90 RF: 0 nitroglycerin [Nitrostat] 0.4 mg tablet, sublingual 0.4 mg SUBLINGUAL Q5M PRN (Reason: chest pain) 30 Days Qty: 25 RF: 6 allopurinol 100 mg tablet 100 mg PO QDAY Qty: 90 RF: 0 naproxen 500 mg tablet 500 mg PO BID Qty: 180 RF: 0 albuterol sulfate [Ventolin HFA] 90 mcg/actuation HFA aerosol inhaler 2 puff INHALATION Q4H PRN (Reason: shortness of breath or wheezing) Qty: 18 RF: 2 All Day Allergy (cetirizine) 10 mg capsule 10 mg PO DAILY Qty: 30 RF: 0 lamotrigine 150 mg tablet 150 mg PO BID Qty: 180 RF: 3 pramipexole 1 mg tablet 1 mg PO QDAY Qty: 90 RF: 2 phenytoin sodium extended 100 mg Capsule 100 mg PO BID 30 Days Qty: 60 RF: 0 Discharge Orders: Discharge Order (Routine); Ordered 08/03/19 Ordered By: Sheldon De Jesus Referrals: Sweetie Santiago MD [Primary Care Provider] - Louisa Jaramillo DO [Family Provider] - Coding Level of Care Code ED Refrigeration Repair Supervisor for Chg Fwd Exam Comprehensive
[2019-08-03 09:59] VITALS: BP 151/84; PULSE 73; RESP 16; O2SAT 100
[2019-08-03 09:59] LABS: Basophils # 0.1 10^3/uL (0.0-0.1); Basophils % 0.8 %; Eosinophils # 0.3 10^3/uL (0.0-0.8); Eosinophils % 3.1 %; Hematocrit 34.1 % (37.0-47.0); Hemoglobin 11.8 g/dL (11.5-15.3); Lymphocytes # 1.9 10^3/uL (0.8-4.8); Lymphocytes % 23.5 %; Mean Corpuscular HGB Conc 34.6 g/dL (30.0-36.0); Mean Corpuscular Hemoglobin 34.2 pg (28.0-34.0); Mean Corpuscular Volume 98.8 fL (81-99); Mean Platelet Volume 8.8 fL (7.4-10.4); Monocytes # 0.7 10^3/uL (0.2-0.9); Neutrophils # 5.3 10^3/uL (1.8-7.7); Nucleated Red Blood Cells % 0 %; Platelet Count 349 10^3/cmm (130-400); Red Blood Count 3.45 10^6/uL (4.1-5.3); Red Cell Distribution Width 13.4 % (12.1-15.1); White Blood Count 8.3 10^3/uL (4.0-10.0)
[2019-08-03 10:17] LABS: Add Urine Microscopic? NO
[2019-08-03 10:21] LABS: Bilirubin Urine Neg (NEGATIVE); Blood Urine Neg (Negative); Glucose Urine UA Norm (Normal); Ketones Urine Negative (Negative); Leukocyte Esterase Urine Negative (Negative); Nitrate Urine Negative (Negative); Protein Urine Neg (Negative); Specific Gravity, Urine 1.015 (1.005-1.030); Urine Appearance Clear (CLEAR); Urine Color Yellow (Yellow); Urobilinogen Urine Norm (Negative); pH Urine 5 (5-7)
[2019-08-03 10:23] LABS: Alanine Aminotransferase 19 U/L (0-33); Alkaline Phosphatase 136 IU/L (35-105); Anion Gap 15.5 (5-19); Aspartate Amino Transferase 17 U/L (0-32); Blood Urea Nitrogen 13 mg/dL (8-23); Calcium 9.5 mg/dL (8.5-10.5); Carbon Dioxide 28 mmol/L (22-29); Chloride 97 mmol/L (98-107); Globulin 2.7 g/dL (1.3-4.6); Glucose 135 mg/dL (65-115); Osmolality Calculated 282 mOsm/kg (285-295); Potassium 3.5 mmol/L (3.5-5.1); Sodium 137 mmol/L (136-145); Total Bilirubin 0.2 mg/dL (0.15-1.2); Total Protein 6.7 g/dL (6.6-8.7)
[2019-08-03 10:53] VITALS: BP 124/65; PULSE 69; RESP 16; O2SAT 100
[2019-08-03] MEDS: iodixanol 320 mg/mL 100mL Btl IV (11:37)
[2019-08-03 12:01] VITALS: BP 170/63; PULSE 65; RESP 18; O2SAT 100
[2019-08-03 13:26] VITALS: BP 143/60; PULSE 68; RESP 18; O2SAT 100
== END 2019-08-03 13:26 | disposition home or self-care (01) ==
PROVIDERS: Emergency Provider Family Medicine; Family Provider Family Medicine; PCP Family Medicine
DX: R33.9 Retention of urine, unspecified (principal); I25.10 Atherosclerotic heart disease of native coronary artery without angina pectoris; I11.0 Hypertensive heart disease with heart failure; I50.9 Heart failure, unspecified; J44.9 Chronic obstructive pulmonary disease, unspecified; E78.2 Mixed hyperlipidemia
CPT/HCPCS: 12345; 36415; 51702; 74177; 80053; 81003; 85025; 99283; Q9967

== ENCOUNTER → 2019-08-23 07:33 | Outpatient (BNVA) | payer MEDICARE, MEDICAID, SELFPAY | PROVIDERS: Family Provider Family Medicine; PCP Family Medicine; Visit Provider Nurse Practitioner Psychiatric/Mental Health | DX: F33.1 Major depressive disorder, recurrent, moderate (principal); F41.9 Anxiety disorder, unspecified; G47.21 Circadian rhythm sleep disorder, delayed sleep phase type; F17.211 Nicotine dependence, cigarettes, in remission; F41.1 Generalized anxiety disorder | CPT/HCPCS: 99214 ==

== ENCOUNTER → 2019-10-18 09:14 | Outpatient (BNVA) | payer MEDICARE, MEDICAID, SELFPAY | PROVIDERS: Family Provider Family Medicine; PCP Family Medicine; Visit Provider Nurse Practitioner Psychiatric/Mental Health | DX: F17.211 Nicotine dependence, cigarettes, in remission (principal); F33.1 Major depressive disorder, recurrent, moderate; F41.9 Anxiety disorder, unspecified; Z79.899 Other long term (current) drug therapy; G47.21 Circadian rhythm sleep disorder, delayed sleep phase type | CPT/HCPCS: 99213 ==

== ENCOUNTER 2019-10-26 08:28 | Outpatient (CLI) | payer MEDICARE, MEDICAID, SELFPAY ==
--- NOTE | 2019-10-26 09:00 | IR_ITS ---
WS: [id number] MYELOGRAM LUMBAR SPINE Fluoroscopic guided lumbar myelogram CLINICAL INFORMATION: Low back pain COMPARISON: None. TECHNIQUE: The procedure, including risks, benefits, and complications, were discussed with the patie nt who agreed to proceed. A timeout was performed to confirm correct patient, procedure, and site. Using sterile technique, the patient was prepped and draped in the usual sterile fashion. After admin istration of local anesthesia using 1% preservative-free lidocaine and using fluoroscopic guidance, a 22-gauge spinal needle was advanced into the subarachnoid space at the L3-L4 level. Subsequently 13 cc of Omnipaque 240 was administered into the thecal sac. The needle was removed and hemostasis was a chieved. Spot fluoroscopic images were obtained. FLUOROSCOPIC TIME: 0.7 minutes. Spot fluoroscopic images demonstrate normal lumbar alignment. No acute compression fractures. Disc sp gary size vertebral body heights well-preserved. Aortic calcification. No high-grade central canal tio nosis. No instability on flexion-extension. Please see CT myelogram report for additional detail. IR/IR myelogram [place] lumbar [id number] IMPRESSION: 1. Uncomplicated lumbar myelogram. 2. No instability on flexion-extension. 3. Please see CT myelogram report for additional detail
[2019-10-26] MEDS: iohexol 240 mg/mL 50 mL Btl INTRATHECA (10:00)
--- NOTE | 2019-10-26 11:30 | CT_ITS ---
WS: [id number] CT LUMBAR SPINE TECHNIQUE: Contrast-enhanced CT of the lumbar spine with coronal and sagittal reformatted images. CLINICAL INFORMATION: Low back pain COMPARISON: CT lumbar March 23, 2019 MRI November 26, 2018 DLP: 1794.[address] scans at [facility] use at least one of these dose optimization techniques: automat ed exposure control; mA and/or kV adjustment per patient size (includes targeted exams where dose is matched to clinical indication); or iterative reconstruction. FINDINGS: Mild lumbar curve convex left. No acute compression fractures. Alignment is unchanged since March 102019. Mild annular bulging L3-L5. L1-L2: Normal. L2-L3: Tiny right foraminal protrusion with mild right foraminal narrowing and slight contact of the exiting right L2 nerve root. Spinal canal and foramen are patent. L3-L4: Mild annular bulging with slight effacement of ventral thecal sac. Mild left foraminal narrowi ng. Spinal canal and foramen are patent. Mild facet arthropathy. L4-L5: Mild annular bulging with moderate central canal stenosis. Moderate facet arthropathy with lig amentum flavum hypertrophy. Mild left greater than right foraminal narrowing. L5-S1: Tiny shallow central disc protrusion with slight effacement of ventral thecal sac. Slight impi ngement on the traversing S1 nerve roots. Mild facet arthropathy with ligamentum flavum hypertrophy. Foramen are patent. Chronic right L1 and L2 transverse process fractures with callus formation. Evidence of prior nephrec roel. Visualized pelvic bony structures: Normal. Paravertebral soft tissues: Normal. CT/CT lumbar spine w con [id number] IMPRESSION: 1. Mild lumbar curve. No acute compression. 2. Moderate central canal stenosis L4-5 due to disc bulging with facet arthrop athy ligament flavum hypertrophy. Impingement traversing L5 nerve roots bilater ally in the subarticular recess. Spinal canal narrowing appears slightly progre ssed compared to the MRI in 2019. 3. Mild foraminal narrowing worse at left L4-5. 4. Tiny shallow central protrusion L5-S1 with encroachment traversing S1 nerve roots bilaterally. 5. Tiny right foraminal protrusion L2-3 slightly contacts the exiting right L2 nerve root. 6. Moderate facet arthropathy L3-L4 and L4-L5. 7. Prior left nephrectomy.
== END 2019-10-26 08:29 | disposition home or self-care (01) ==
LOC: RADWPI 08:35
PROVIDERS: PCP Family Medicine; Visit Provider Licensed Practical Nurse
DX: M51.17 Intervertebral disc disorders with radiculopathy, lumbosacral region (principal); M48.061 Spinal stenosis, lumbar region without neurogenic claudication; M51.26 Other intervertebral disc displacement, lumbar region; M47.816 Spondylosis without myelopathy or radiculopathy, lumbar region; M51.27 Other intervertebral disc displacement, lumbosacral region; Z90.5 Acquired absence of kidney
CPT/HCPCS: 62304; 72120; 72132; Q9966

== ENCOUNTER → 2019-11-02 14:00 | Outpatient (BNVA) | payer MEDICARE, MEDICAID, SELFPAY | PROVIDERS: PCP Family Medicine; Visit Provider Licensed Practical Nurse | DX: M51.17 Intervertebral disc disorders with radiculopathy, lumbosacral region (principal); G60.8 Other hereditary and idiopathic neuropathies; N28.89 Other specified disorders of kidney and ureter | CPT/HCPCS: 99213 ==

== ENCOUNTER → 2019-11-16 14:35 | Outpatient (BNVA) | payer MEDICARE, MEDICAID, SELFPAY | PROVIDERS: PCP Family Medicine; Visit Provider Specialist | DX: G60.8 Other hereditary and idiopathic neuropathies (principal); G25.81 Restless legs syndrome; R26.81 Unsteadiness on feet; M51.17 Intervertebral disc disorders with radiculopathy, lumbosacral region | CPT/HCPCS: 99214 ==

== ENCOUNTER → 2020-01-11 07:49 | Outpatient (BNVA) | payer MEDICARE, MEDICAID, SELFPAY | PROVIDERS: PCP Family Medicine; Visit Provider Nurse Practitioner Psychiatric/Mental Health | DX: F33.1 Major depressive disorder, recurrent, moderate (principal); F41.9 Anxiety disorder, unspecified; G47.21 Circadian rhythm sleep disorder, delayed sleep phase type; F17.211 Nicotine dependence, cigarettes, in remission | CPT/HCPCS: 99213 ==

== ENCOUNTER → 2020-01-12 13:58 | Outpatient (BNVA) | payer MEDICARE, MEDICAID, SELFPAY | PROVIDERS: PCP Family Medicine; Visit Provider Licensed Practical Nurse | DX: M51.17 Intervertebral disc disorders with radiculopathy, lumbosacral region (principal); G60.8 Other hereditary and idiopathic neuropathies | CPT/HCPCS: 99214 ==

== ENCOUNTER → 2020-04-10 07:58 | Outpatient (BNVA) | payer MEDICARE, MEDICAID, SELFPAY | PROVIDERS: PCP Family Medicine; Visit Provider Nurse Practitioner Psychiatric/Mental Health | DX: F33.1 Major depressive disorder, recurrent, moderate (principal); F41.9 Anxiety disorder, unspecified; G47.21 Circadian rhythm sleep disorder, delayed sleep phase type; F17.211 Nicotine dependence, cigarettes, in remission; F41.1 Generalized anxiety disorder | CPT/HCPCS: 99214 ==

== ENCOUNTER → 2020-04-19 11:33 | Outpatient (BNVA) | payer MEDICARE, MEDICAID, SELFPAY | PROVIDERS: PCP Family Medicine; Visit Provider Family Medicine | DX: S20.219A Contusion of unspecified front wall of thorax, initial encounter (principal); S20.211A Contusion of right front wall of thorax, initial encounter; S46.911A Strain of unspecified muscle, fascia and tendon at shoulder and upper arm level, right arm, initial encounter; J43.9 Emphysema, unspecified; X58.XXXA Exposure to other specified factors, initial encounter | CPT/HCPCS: 71046 ==

== ENCOUNTER 2020-04-27 06:42 | Emergency (ER) | payer MEDICARE, MEDICAID, SELFPAY ==
[2020-04-27 06:52] VITALS: BP 142/72; PULSE 76; RESP 17; TEMP 36.7; O2SAT 97; BMI 29.2
[2020-04-27 07:02] VITALS: BP 130/60; PULSE 92; RESP 18; O2SAT 97
--- NOTE | 2020-04-27 07:07 | XR_ITS ---
WS: [id number] PORTABLE CHEST HISTORY: dyspnea/cough COMPARISON: 04/19/2020 Lungs are clear and well expanded. No pleural effusion or pneumothorax. Cardiac size: Normal. Mediastinum/Aorta: Normal mediastinum. No osseous abnormality seen. XR/XR chest 1V portable [id number] IMPRESSION: Unremarkable portable chest.
--- NOTE | 2020-04-27 07:07 | ECG_ITS ---
[facility] Test Date: 2020-04-27 Pat Name: Roxana Carrington Department: Room: Gender: Female [employer] Information Clerk: : 1945 Requested By: Rashad Craig Order Number: [id number] Reading MD: HEENA TURCIOS Measurements Intervals [place] Rate: 73 P: 63 [place]: 163 QRS: 26 QRSD: 75 T: 45 QT: 393 QTc: 435 Interpretive Statements SINUS RHYTHM POSSIBLE RIGHT VENTRICULAR CONDUCTION DELAY [RSR (QR) IN V1/V2] Compared to ECG 07/04/2019 03:08:12 T-wave abnormality no longer present Electronically Signed On 04-27-2020 18:18:13 CREDIT ADJUSTER by HEENA TURCIOS [email or web address]
--- NOTE | 2020-04-27 07:08 | CTR_ITS ---
PROCEDURE INFORMATION: Exam: CT Head Without Contrast Exam date and time: 04/27/2020 7:19 AM Age: 74 years old Clinical indication: Injury or trauma; Fall; Blunt trauma (contusions or hematomas); Prior surgery; Additional info: Fall w loc TECHNIQUE: Imaging protocol: Computed tomography of the head without contrast. Radiation optimization: All CT scans at this facility use at least one of these dose optimization techniques: automated exposure control; mA and/or kV adjustment per patient size (includes targeted exams where dose is matched to clinical indication); or iterative reconstruction. COMPARISON: CT head wo con* [id number] 07/03/2019 8:13 PM RADIATION DOSE METRICS: Total DLP (mGy-cm): 798.2 FINDINGS: Brain: No hemorrhage, mass effect or midline shift. No acute, major vascular distribution infarction identified. There is foci of decreased attenuation in the periventricular and subcortical white matter, likely representing chronic small vessel ischemic changes. Mild cerebral volume loss is present. Cerebral ventricles: No ventriculomegaly. Bones/joints: Unremarkable. No acute fracture. Paranasal sinuses: Visualized sinuses are unremarkable. No fluid levels. Mastoid air cells: Visualized mastoid air cells are well aerated. Soft tissues: Unremarkable. CT/CT head wo con* [id number] IMPRESSION: No acute intracranial abnormality. Radiation Dose CTDIVOL = (mGy): DLP = 798.2 (mGy-cm)
[2020-04-27 07:23] LABS: Basophils # 0.1 10^3/uL (0.0-0.1); Basophils % 0.6 %; Eosinophils # 0.1 10^3/uL (0.0-0.8); Eosinophils % 0.9 %; Hematocrit 26.2 % (37.0-47.0); Hemoglobin 8.3 g/dL (11.5-15.3); Lymphocytes # 1.5 10^3/uL (0.8-4.8); Lymphocytes % 14.1 %; Mean Corpuscular HGB Conc 31.7 g/dL (30.0-36.0); Mean Corpuscular Hemoglobin 26.1 pg (28.0-34.0); Mean Corpuscular Volume 82.4 fL (81-99); Mean Platelet Volume 8.5 fL (7.4-10.4); Monocytes # 0.7 10^3/uL (0.2-0.9); Monocytes % 6.4 %; Neutrophils # 8.23 10^3/uL (1.8-7.7); Neutrophils % 77.6 %; Nucleated Red Blood Cells % 0 %; Platelet Count 449 10^3/cmm (130-400); Red Blood Count 3.18 10^6/uL (4.1-5.3); Red Cell Distribution Width 14.9 % (12.1-15.1); White Blood Count 10.6 10^3/uL (4.0-10.0)
--- NOTE | 2020-04-27 07:23 | W.ED.FALL ---
HPI - Fall General: Chief Complaint: Fall Stated Complaint: fall, chest discomfort with movement Time Seen by Provider: 04/27/20 06:45 History of Present Illness: HPI Narrative: 74-year-old female presents to the emergency room complaining of chest pain after a fall last week. She states she has M?ni?re's disease and falls frequently. 5 days ago she fell and evaluated. She reports having lost consciousness. She has pain in the upper portion of her chest. She was seen on the day that she fell at urgent care and was also seen by Dr. Welch via telehealth visit. When she was seen in urgent care she was given pain medications but has only taken 1 in the last 5 days. She is awake and alert and oriented at this time. 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 She is not on any anticoagulants. She denies any pain radiating into her neck are there is no associated shortness of breath no fever sweats or chills. MD complaint: fall Onset (ago): day(s) (5) Fall from: standing Fall witnessed: no Place fall occurred: home Loss of consciousness: Yes Prolonged down time: no Symptoms prior to fall: lightheadedness and dizziness Context: tripped/slipped Location of injury: head and chest Associated symptoms-after fall: Reports chest pain; Denies abdominal pain, confusion, difficulty walking, headache(s), hematuria, lightheadedness, neck pain, numbness, short of breath, vertigo or weakness Review of Systems Const: Denies: fever(s), chills, body aches, change in appetite, fatigue or malaise ENMT: Denies: throat pain, ear or mastoid pain, nasal discharge or nasal congestion Card: Reports: chest pain; Denies: lightheadedness Resp: Denies: dyspnea, productive cough or non-productive cough GI: Denies: abdominal pain : Denies: hematuria Musc: Denies: neck pain Skin/Breast: Denies: rash or pruritus Neuro: Denies: headache(s), difficulty walking, vertigo or confusion PFS ED PFSH: Medical History (Updated 04/27/20 @ 08:43 by Rashad Rogers DO) Anxiety and depression Blindness CAD (coronary artery disease) CHF (congestive heart failure) Chronic gout Circadian rhythm sleep disorder, delayed sleep phase type COPD (chronic obstructive pulmonary disease) Enrolled in chronic care management Essential hypertension Gait instability Generalized epilepsy, intractable GERD (gastroesophageal reflux disease) Hyperlipidemia, mixed Intervertebral disc disorder with radiculopathy of lumbosacral region Meniere's disease, bilateral Nicotine dependence in remission Early remission PRESTON treated with BiPAP Polyneuropathy, peripheral sensorimotor axonal Postictal headache PVD (peripheral vascular disease) Recurrent moderate major depressive disorder with anxiety Restless leg Surgical History H/O: hysterectomy History of appendectomy History of brain surgery (~1998) Meniere's disease History of carpal tunnel repair left History of cholecystectomy History of foot surgery bilateral Left kidney mass 06/07/2019 Dr. Jenaro [facility] [place] [place]. Left partial nephrectomy Family History Mother CAD (coronary artery disease) Myocardial infarction Stroke Diabetes Father CAD (coronary artery disease) Myocardial infarction Stroke Social History Smoking and tobacco status: former smoker Alcohol intake: never Household members: spouse Marital status: Current occupational status: retired and disabled History of recent travel: No Female Reproductive History: Para: 4 Spontaneous abortions: Yes Physical Exam Const: COMMON NORMALS: no acute distress GENERAL APPEARANCE: cooperative and comfortable ORIENTATION/CONSCIOUSNESS: Yes awake, Yes oriented to person, Yes oriented to place and Yes oriented to time HENMT: COMMON NORMALS: normocephalic, atraumatic, hearing grossly normal bilaterally, external ears normal, EAC's normal, TM's normal bilaterally, Normal nasal mucous membranes and turbinates present, moist oral mucous membranes and oropharynx normal HEAD & SCALP: normocephalic and atraumatic NOSE: Normal nasal mucous membranes and turbinates present EXTERNAL EAR: Yes external ears normal EXTERNAL AUDITORY CANAL: EAC's normal TYMPANIC MEMBRANE: TM's normal bilaterally Neck/C-Spine: COMMON NORMALS: full ROM, no lymphadenopathy, supple and no JVD Lymph: LYMPHATIC: no lymphadenopathy noted and no lymphedema noted Chest: OTHER: Faint resolving ecchymosis to the left of the sternum over the medial aspect of the left breast. No crepitus with palpation significantly tender at the right shoulder and at the sternum to palpation. Resp: COMMON NORMALS: normal respiratory effort, No retractions, No use of accessory muscles and clear to auscultation bilaterally AUSCULTATION: clear to auscultation bilaterally Cardio: COMMON NORMALS: no JVD, regular rate, regular rhythm and No murmurs present (Cardio) RATE: regular rate RHYTHM: regular rhythm GI: COMMON NORMALS: Soft to palpation and No hepatosplenomegaly present AUSCULTATION: Yes normoactive bowel sounds PALPATION: Yes Soft to palpation, No Tenderness to palpation present (GI), No Guarding due to palpation present (GI) and Yes No hepatosplenomegaly present RECTAL EXAM: visual inspection normal, normal sphincter tone and heme positive stool Extremity: COMMON NORMALS: normal to inspection, capillary refill normal, no clubbing, cyanosis or edema, no calf tenderness and no pedal edema Neuro: SENSORIUM/ORIENTATION: Yes oriented to person, Yes oriented to place and Yes oriented to time Skin: COMMON NORMALS: no rashes or lesions noted GENERAL SKIN EXAM: no rashes or lesions noted Course Vital Signs: Vital signs: Vital Signs Temperature 98.1 F 04/27/20 06:52 Pulse Rate 77 04/27/20 07:49 Respiratory Rate 16 04/27/20 07:49 Blood Pressure 144/70 04/27/20 07:49 Pulse Oximetry 99 04/27/20 07:49 MDM - Fall MDM Narrative: Medical decision making narrative: Imaging normal. Incidental finding of anemia. A year ago her hemoglobin is 11-1/2 now she is down to 8.3 she is blind she says she has not noticed any change in stools or any frankly bloody stool that she likely would not be able to tell because of her visual loss. Hemoccult masses on rectal exam. Her MCV is normal and her BUN is normal suspect colonic source. She is not particularly tachycardic so I do not believe this is a acute loss. Fortunately she is not on any oral anticoagulation. We will refer her back to her primary care doctor for work-up of her anemia. Encourage patient to use pain medications for the chest discomfort from the fall reminded her the same from Dr. Knox's visit that this may take a couple of weeks before completely resolves. Lab Data: Labs: Lab Results 04/27/20 04/27/20 Range/Units 07:19 07:19 WBC 10.6 H (4.0-10.0) 10^3/ uL RBC 3.18 L (4.1-5.3) 10^6/u L Hgb 8.3 L (11.5-15.3) g/dL Hct 26.2 L (37.0-47.0) % MCV 82.4 (81-99) fL MCH 26.1 L (28.0-34.0) pg MCHC 31.7 (30.0-36.0) g/dL RDW 14.9 (12.1-15.1) % Plt Count 449 H (130-400) 10^3/c mm MPV 8.5 (7.4-10.4) fL Neut % (Auto) 77.6 % Lymph % (Auto) 14.1 % [place] % (Auto) 6.4 % Eos % (Auto) 0.9 % Baso % (Auto) 0.6 % Neut # (Auto) 8.23 H (1.8-7.7) 10^3/u L Lymph # (Auto) 1.5 (0.8-4.8) 10^3/u L [place] # (Auto) 0.7 (0.2-0.9) 10^3/u L Eos # (Auto) 0.1 (0.0-0.8) 10^3/u L Baso # (Auto) 0.1 (0.0-0.1) 10^3/u L Nucleated RBC % (a uto) 0 % Nucleated RBCs # 0.0 /100WBC Sodium 137 (136-145) mmol/L Potassium 3.6 (3.5-5.1) mmol/L Chloride 100 (98-107) mmol/L Carbon Dioxide 29 (22-29) mmol/L Anion Gap 11.6 (5-19) BUN 15 (8-23) mg/dL Creatinine 0.6 (0.5-0.9) mg/dL GFR Calculation Not Reportable Glucose 109 (65-115) mg/dL Calculated Osmolal ity 285 (285-295) mOsm/k g Calcium 8.7 (8.5-10.5) mg/dL Total Bilirubin 0.2 (0.15-1.2) mg/dL AST 11 (0-32) U/L ALT 9 (0-33) U/L Alkaline Phosphata se 156 H (35-105) IU/L Creatine Kinase 40 (26-192) U/L Total Protein 6.3 L (6.6-8.7) g/dL Albumin 3.5 (3.5-5.2) g/dL Globulin 2.8 (1.3-4.6) g/dL Discharge Plan Discharge Patient Disposition: Home Clinical Impression: Fall at home, Contusion of chest, Anemia, Fecal occult blood test positive Condition: Stable Prescriptions: No Action pramipexole 0.5 mg tablet 1.5 mg PO QDAY Qty: 90 RF: 5 Spiriva with HandiHaler 18 mcg capsule, w/inhalation device 1 cap inhalation DAILY RF: 0 zolpidem [Ambien] 10 mg tablet PO RF: 0 hydrocodone-acetaminophen 5-325 mg tablet 1 tab PO Q8H PRN (Reason: Pain) 7 Days Qty: 20 RF: 0 diphenhydramine HCl [Benadryl Allergy] 25 mg tablet 100 mg PO .QHS PRN (Reason: Allergic Reaction) RF: 0 Trelegy Ellipta 100-62.5-25 mcg blister with device 1 inh INHALATION QDAY RF: 0 potassium chloride 10 mEq capsule, extended release 10 meq PO QDAY RF: 0 ipratropium-albuterol 0.5 mg-3 mg(2.5 mg base)/3 mL solution for nebulization 3 ml INHALATION Q4H PRN (Reason: Shortness Of Breath Or Wheezing) RF: 0 montelukast [Singulair] 10 mg tablet 10 mg PO QDAY RF: 0 aripiprazole 5 mg tablet 5 mg PO .QHS Qty: 90 RF: 2 bupropion HCl 200 mg tablet sustained-release 12 hr 200 mg PO BID Qty: 180 RF: 2 lorazepam 1 mg tablet 1 mg PO .COMPLEX Qty: 90 RF: 3 mirtazapine [Remeron] 15 mg tablet 15 mg PO .QHS Qty: 90 RF: 2 atorvastatin [Lipitor] 20 mg tablet 20 mg PO QDAY Qty: 90 RF: 0 allopurinol 100 mg tablet 100 mg PO QDAY Qty: 90 RF: 0 naproxen 500 mg tablet 500 mg PO BID Qty: 180 RF: 0 albuterol sulfate [Ventolin HFA] 90 mcg/actuation HFA aerosol inhaler 2 puff INHALATION Q4H PRN (Reason: shortness of breath or wheezing) Qty: 18 RF: 2 All Day Allergy (cetirizine) 10 mg capsule 10 mg PO DAILY Qty: 30 RF: 0 furosemide 40 mg tablet 40 mg PO DAILY Qty: 180 RF: 3 nitroglycerin 0.4 mg tablet, sublingual 0.4 mg sublingual Q5M PRN (Reason: chest pain) Qty: 50 RF: 2 lamotrigine 150 mg tablet 150 mg PO BID Qty: 60 RF: 0 phenytoin sodium extended 100 mg capsule 100 mg PO BID Qty: 180 RF: 0 Discharge Orders: Discharge ED (Routine); Ordered 04/27/20 Ordered By: Rashad Rogers Discharge Diet: Usual diet Discharge Activity: Increase activity as tolerated Patient Instructions: Opioid Safety Activity Restrictions/Additional Instructions: Use previously prescribed pain medications. The chest wall pain will likely take several weeks to resolve. You do need to follow-up with your primary care doctor on the low blood counts and Hemoccult positive stools (blood in the stool). 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
[2020-04-27 07:45] LABS: Alanine Aminotransferase 9 U/L (0-33); Albumin Level 3.5 g/dL (3.5-5.2); Alkaline Phosphatase 156 IU/L (35-105); Anion Gap 11.6 (5-19); Aspartate Amino Transferase 11 U/L (0-32); Blood Urea Nitrogen 15 mg/dL (8-23); Calcium 8.7 mg/dL (8.5-10.5); Carbon Dioxide 29 mmol/L (22-29); Chloride 100 mmol/L (98-107); Creatine Phosphokinase 40 U/L (26-192); Globulin 2.8 g/dL (1.3-4.6); Glucose 109 mg/dL (65-115); Osmolality Calculated 285 mOsm/kg (285-295); Potassium 3.6 mmol/L (3.5-5.1); Sodium 137 mmol/L (136-145); Total Bilirubin 0.2 mg/dL (0.15-1.2); Total Protein 6.3 g/dL (6.6-8.7)
[2020-04-27 07:49] VITALS: BP 144/70; PULSE 77; RESP 16; O2SAT 99
--- NOTE | 2020-04-27 07:50 | XR_ITS ---
WS: [id number] Sternum 2 view. HISTORY: Pain for several days. Status post fall. COMPARISON: Chest radiograph 04/19/2020 No sternal fractures are identified. The adjacent ribs are intact. XR/XR sternum min 2V [id number] IMPRESSION: No sternal fractures are identified. If there is continued concern for fracture consider follow-up CT evaluation.
[2020-04-27 08:49] VITALS: BP 146/79; PULSE 80; RESP 18; O2SAT 96
--- NOTE | 2020-04-28 15:05 | DCPLANNER ---
manager completions had message to schedule a follow up appointment for patient with primary care physician, Dr. Knox. manager completions called [facility], spoke with Lynne, gave clinic patients information. manager completions was told that patients information would be printed and reviewed, clinic will call patient with appointment information.
--- NOTE | 2020-05-10 15:12 | DCPLANNER ---
Patient had a follow up appointment scheduled for 05.01.20 and the appointment was cancelled.
== END 2020-04-27 08:49 | disposition home or self-care (01) ==
PROVIDERS: Emergency Provider Family Medicine
DX: S20.219A Contusion of unspecified front wall of thorax, initial encounter (principal); D64.9 Anemia, unspecified; R19.5 Other fecal abnormalities; W19.XXXA Unspecified fall, initial encounter; I25.10 Atherosclerotic heart disease of native coronary artery without angina pectoris; I11.0 Hypertensive heart disease with heart failure; I50.9 Heart failure, unspecified; J44.9 Chronic obstructive pulmonary disease, unspecified; E78.2 Mixed hyperlipidemia; Z87.891 Personal history of nicotine dependence
CPT/HCPCS: 70450; 71045; 71120; 80053; 82272; 82550; 85025; 93005; 99283

== ENCOUNTER → 2020-05-10 13:24 | Outpatient (BNVA) | payer MEDICARE, MEDICAID, SELFPAY | PROVIDERS: Visit Provider Specialist | DX: M19.012 Primary osteoarthritis, left shoulder (principal); W19.XXXA Unspecified fall, initial encounter; Y92.009 Unspecified place in unspecified non-institutional (private) residence as the place of occurrence of the external cause | CPT/HCPCS: 73030 ==

== ENCOUNTER → 2020-07-18 08:16 | Outpatient (BNVA) | payer MEDICARE, MEDICAID, SELFPAY | PROVIDERS: PCP Family Medicine; Visit Provider Nurse Practitioner Psychiatric/Mental Health | DX: F33.1 Major depressive disorder, recurrent, moderate (principal); F41.9 Anxiety disorder, unspecified; G47.21 Circadian rhythm sleep disorder, delayed sleep phase type; F17.211 Nicotine dependence, cigarettes, in remission | CPT/HCPCS: 99214 ==

== ENCOUNTER → 2020-10-24 07:54 | Outpatient (BNVA) | payer MEDICARE, MEDICAID, SELFPAY | PROVIDERS: PCP Family Medicine; Visit Provider Nurse Practitioner Psychiatric/Mental Health | DX: F33.1 Major depressive disorder, recurrent, moderate (principal); F41.9 Anxiety disorder, unspecified; G47.21 Circadian rhythm sleep disorder, delayed sleep phase type; F17.211 Nicotine dependence, cigarettes, in remission | CPT/HCPCS: 99214 ==